=== PATIENT | male | born 1945 | race Caucasian/White ===

== ENCOUNTER → 2018-05-26 | Outpatient (CLI) | payer OTHER ==
[~2018-05-26] MED LIST: ALBU90OI6 INH; ATOR20 PO; Aspirin EC81 MG PO; BRIMONIDINE 0.110 ML; BUDE.25 NEB; CLOP75 PO; EPINEPHRIN0.15 MG/01; FISH OIL 1,0001 EAC1 PO; FLUT1DIS5 INH; FLUT1DIS8 INH; Flovent Diskus50 MCG INH; IRBESARTAN-HCT1 EAC1 PO; LATANOPROST2.5 ML OP; Metformin HCl500 MG PO; Multiple Vitam1 EAC1 PO; POTCHL10ER PO; SITA100T2 PO; Toprol Xl25 MG PO; UBID100 PO
== END | disposition home or self-care (01) ==
LOC: LAB EV 13:12 → LAB SHORT 13:12
DX: N39.0 Urinary tract infection, site not specified (principal)
CPT/HCPCS: 87086

== ENCOUNTER → 2018-08-13 | Outpatient (CLI) | payer OTHER ==
[2018-08-13 17:31] LABS: BASOPHILS ABSOLUTE AUTO 0.02 K/mm3 (0.00-0.23); BASOPHILS PERCENT AUTO 0 % (0-2); EOSINOPHILS ABSOLUTE AUTO 0.34 K/mm3 (0.00-0.68); EOSINOPHILS PERCENT AUTO 6 % (0-6); Hematocrit 43.8 % (37.0-53.0); Hemoglobin 15.1 g/dL (13.5-17.5); IMMATURE GRAN ABSOLUTE AUTO 0.01 K/mm3 (0.00-0.10); IMMATURE GRAN PERCENT AUTO 0 % (0-1); LYMPHOCYTES ABSOLUTE AUTO 1.04 K/mm3 (0.84-5.20); LYMPHOCYTES PERCENT AUTO 19 % (21-46); MONOCYTES ABSOLUTE AUTO 0.37 K/mm3 (0.16-1.47); MONOCYTES PERCENT AUTO 7 % (4-13); Mean Corpuscular HGB 29.4 pg (26.0-34.0); Mean Corpuscular HGB Conc 34.5 g/dL (31.5-36.5); Mean Corpuscular Volume 85 fL (80-100); Mean Platelet Volume 10.3 fL (9.1-12.4); NEUTROPHILS ABSOLUTE AUTO 3.57 K/mm3 (1.96-9.15); NEUTROPHILS PERCENT AUTO 67 % (41-73); Platelet Count 242 K/mm3 (150-400); RDW Coefficient Variation 14.1 % (11.7-14.2); RDW Standard Deviation 43.8 fL (35.1-46.3); Red Blood Cell Count 5.14 M/mm3 (4.30-5.90); White Blood Cell Count 5.35 K/mm3 (4.00-11.30)
[2018-08-13 17:44] LABS: Bun/Creatinine Ratio 17.5 (12.0-20.0); Creatinine, Blood 1.66 mg/dL (0.60-1.20); Potassium, Blood 3.5 mmol/L (3.5-5.5); Troponin I 0.022 ng/mL (0.000-0.040)
== END | disposition home or self-care (01) ==
LOC: LAB SHORT 17:22 → LAB EV 17:22
PROVIDERS: Physician Assistant Surgical
DX: R06.09 Other forms of dyspnea (principal)
CPT/HCPCS: 80048; 83880; 84484; 85025

== ENCOUNTER 2019-05-11 08:12 | Day surgery (SDC) | payer OTHER ==
[~2019-05-11] VITALS: Ht 172.7 cm; Wt 97.8 kg
[~2019-05-11 08:12] MED LIST changes: +COQ-10100 MG PO; +EPIPEN0.3 MG/0.3 IM; +FLUT1DIS5; +Fish Oil 10001000 MG PO; +Flonase 0.05% N16 GM; +LATANOPROST 0.7.5 ML OP; +Lipitor20 MG PO; +METF500 PO; +METO25ER PO; +MULTIPLE VITAM1 EACH PO; +POTA10T PO
--- NOTE | 2019-05-11 09:59 | NUR ---
05/11/19 0959 [facility] PRE OP BLOOD SUGAR 342. DR. CHURCH & DR. COWART NOTIFIED. NO ORDERS RECEIVED. PER BOTH DRS OK TO PROCEED WITH SURGERY.
== END 2019-05-11 14:39 | disposition home or self-care (01) ==
LOC: ORSCSDS 08:12
PROVIDERS: Otolaryngology
PROC: 09DV4ZZ Extraction of Left Ethmoid Sinus, Percutaneous Endoscopic Approach (ICD-10-PCS; principal; 2019-05-11 09:30)
PROC: 09SM0ZZ Reposition Nasal Septum, Open Approach (ICD-10-PCS; principal; 2019-05-11 09:30)
PROC: 09DU4ZZ Extraction of Right Ethmoid Sinus, Percutaneous Endoscopic Approach (ICD-10-PCS; principal; 2019-05-11 09:30)
PROC: 8E09XBZ Computer Assisted Procedure of Head and Neck Region (ICD-10-PCS; principal; 2019-05-11 09:30)
DX: J32.4 Chronic pansinusitis (principal); J33.0 Polyp of nasal cavity; I10 Essential (primary) hypertension; I25.2 Old myocardial infarction; E11.9 Type 2 diabetes mellitus without complications; G47.33 Obstructive sleep apnea (adult) (pediatric); E78.5 Hyperlipidemia, unspecified; Z79.82 Long term (current) use of aspirin; Z79.84 Long term (current) use of oral hypoglycemic drugs; Z79.01 Long term (current) use of anticoagulants; K21.9 Gastro-esophageal reflux disease without esophagitis
CPT/HCPCS: 82947; 88305; 88311; C2625; J1100; J2250; J2370; J2405; J2704; J2710; J3010; J7120

== ENCOUNTER 2021-01-07 06:20 | Observation (INO) | payer OTHER ==
[~2021-01-07] VITALS: Ht 172.7 cm; Wt 94.8 kg
[~2021-01-07 06:20] MED LIST changes: -FLUT1DIS5; -LATANOPROST 0.7.5 ML OP; -Lipitor20 MG PO; -METO25ER PO
[2021-01-07 06:52] LABS: BASOPHILS ABSOLUTE AUTO 0.06 K/mm3 (0.00-0.23); BASOPHILS PERCENT AUTO 1 % (0-2); EOSINOPHILS ABSOLUTE AUTO 0.15 K/mm3 (0.00-0.68); EOSINOPHILS PERCENT AUTO 3 % (0-6); Hematocrit 45.6 % (37.0-53.0); IMMATURE GRAN ABSOLUTE AUTO 0.02 K/mm3 (0.00-0.10); IMMATURE GRAN PERCENT AUTO 0 % (0-1); LYMPHOCYTES ABSOLUTE AUTO 0.42 K/mm3 (0.84-5.20); LYMPHOCYTES PERCENT AUTO 8 % (21-46); MONOCYTES PERCENT AUTO 14 % (4-13); Mean Corpuscular HGB 27.5 pg (26.0-34.0); Mean Corpuscular HGB Conc 32.9 g/dL (31.5-36.5); Mean Corpuscular Volume 84 fL (80-100); Mean Platelet Volume 10.6 fL (9.1-12.4); NEUTROPHILS PERCENT AUTO 74 % (41-73); Platelet Count 153 K/mm3 (150-400); RDW Coefficient Variation 15.1 % (11.7-14.2); RDW Standard Deviation 46.1 fL (35.1-46.3); Red Blood Cell Count 5.45 M/mm3 (4.30-5.90); White Blood Cell Count 5.55 K/mm3 (4.00-11.30)
[2021-01-07 07:14] LABS: Alanine Aminotransfer (ALT/SGP 26 U/L (12-78); Albumin, Blood 3.5 g/dL (3.4-5.0); Albumin/Globulin Ratio 0.9 (0.8-1.8); Alk Phos 98 U/L (50-136); Anion Gap 10 mmol/L (6-16); Aspartate Aminotrans (AST/SGOT 32 U/L (12-37); Bilirubin, Total 0.7 mg/dL (0.1-1.0); Blood Urea Nitrogen 12 mg/dL (8-24); Bun/Creatinine Ratio 8.4 (12.0-20.0); CO2, Blood 20 mmol/L (21-32); Calcium, Blood 8.7 mg/dL (8.5-10.1); Chloride, Blood 108 mmol/L (98-108); Creatinine, Blood 1.43 mg/dL (0.60-1.20); Glomerular Filtration Rate 48 (60-); Glucose, Blood 164 mg/dL (70-99); Potassium, Blood 3.5 mmol/L (3.5-5.5); Sodium, Blood 138 mmol/L (136-145); Total Protein, Blood 7.5 g/dL (6.4-8.2); Troponin I 0.054 ng/mL (0.000-0.040)
[2021-01-07 07:43] LABS: SARS-Cov-2 (COVID-19) PCR, MMC POSITIVE (NEGATIVE)
--- NOTE | 2021-01-07 11:29 | NUR ---
Admit: 01/07/21 Discharge: TBD PCP: Sandy Jackson Dx: Weakness & Fever - Positive COVID-19 CC: [facility] Physician: Ramon Amaro MD. Pt. Contact/Caregiver: Mira Lind, - [phone] [place]: Yes
[2021-01-07] MEDS ORDERED: LATANOPROST 0.7.5 ML BOTHEYES (13:09)
[2021-01-07] MEDS ORDERED: LOSARTAN POTAS100 M1 PO (13:10)
[2021-01-07] MEDS ORDERED: SITA100T2 PO (13:11)
[2021-01-07] MEDS ORDERED: FLUT1DIS5 INH (13:12)
[2021-01-07] MEDS ORDERED: Lipitor20 MG PO (13:13)
[2021-01-07] MEDS ORDERED: METO25ER PO (13:14)
[2021-01-07] MEDS ORDERED: TAMS.4ER PO (13:15)
[2021-01-07] MEDS ORDERED: CLOP75 PO (13:16)
[2021-01-07] MEDS ORDERED: Aspirin EC81 MG PO (13:17)
--- NOTE | 2021-01-07 16:37 | NUR ---
SHIFT SUMMARY. 1350 PT ADMITTED TO MEDICAL FLOOR VIA [facility] FOR WEAKNESS SECONDARY TO COVID-19 INFECTION. VSS, MILDLY HTN, APRESOLINE GIVEN PER ORDERS. PT DENIES PAIN, SOB. PT DOES REPORT SOB, PT BECOMES TACHYPNEIC WITH TALKING AND CHANGES POSITIONS. PT REQUIRED ASSISTANCE TO LOG ROLL IN BED. LUNGS CLEAR, ALTHOUGH DIM T/O, SPO2 GREATER THAN 96% ON RA. NO OTHER CHANGES OR CONCERNS. OT JUST FINISHED EVAL AND IS RECOMMENDING SNF AT THIS TIME DUE TO WEAKNESS, OT REPORTS PT SHOULD BE A 2 PERSON ASSIST TO CHAIR.
--- NOTE | 2021-01-08 03:56 | NUR ---
SHIFT SUMMARY ADMITTED FOR COVID+. FULL CODE. TELEMETRY: NSR @ 75 BPM. NO NEW CONCERNS THIS SHIFT
[2021-01-08 05:58] LABS: C-REACTIVE PROTEIN, EXT RANGE 3.6 mg/dL (0.000-0.300)
--- NOTE | 2021-01-08 07:30 | NUR ---
ASSUMED CARE: PT RESTING QUIETLY IN BED AT THIS TIME. ON RA BUT STATES TIRED AND HAS NO ENERGY
--- NOTE | 2021-01-08 09:30 | NUR ---
PHYSICAL THERAPY PERFORMED EVALUATION AND GOT PT UP TO RECLINER. STATES PT WAS STEADY WITH ONE ASSIST BUT SLOW GOING. DR MUNIZ AWARE
--- NOTE | 2021-01-08 18:35 | NUR ---
SHIFT SUMMARY: PT RESTING IN BED, HAS BEEN WORN OUT ALL DAY WITH VERY LITTLE ENDURANCE OR TOLERANCE FOR ACTIVITY. REMAINS ON ROOM AIR BUT SOB ON EXERTION AND SLOW MOVING. PHYSICAL THERAPY EVALUATION. NO FURTHER NEEDS OR CONCERNS AT THIS TIME.
--- NOTE | 2021-01-09 04:18 | NUR ---
SHIFT SUMMARY NO ACUTE CHANGES THIS SHIFT, NO C/O ANY KIND, RET CALL TO DARLEEN (SPOUSE) AND GAVE UPDATE ON STATUS, QUESTIONING DC PLANS & STATED PT HAS BECOME DIFFICULT FOR HER TO CARE FOR AT HOME. PT SLEPT T/O THE NIGHT, SLEEPING AT THIS TIME, CALL LIGHT IN REACH, WILL CONT TO MONITOR UNTIL REPORT GIVEN TO DAY RN.
[2021-01-09 05:29] LABS: BASOPHILS ABSOLUTE AUTO 0.02 K/mm3 (0.00-0.23); BASOPHILS PERCENT AUTO 1 % (0-2); EOSINOPHILS ABSOLUTE AUTO 0.14 K/mm3 (0.00-0.68); EOSINOPHILS PERCENT AUTO 3 % (0-6); Hematocrit 41.7 % (37.0-53.0); Hemoglobin 13.8 g/dL (13.5-17.5); IMMATURE GRAN ABSOLUTE AUTO 0.01 K/mm3 (0.00-0.10); IMMATURE GRAN PERCENT AUTO 0 % (0-1); LYMPHOCYTES ABSOLUTE AUTO 0.96 K/mm3 (0.84-5.20); LYMPHOCYTES PERCENT AUTO 22 % (21-46); MONOCYTES ABSOLUTE AUTO 0.61 K/mm3 (0.16-1.47); MONOCYTES PERCENT AUTO 14 % (4-13); Mean Corpuscular HGB 27.5 pg (26.0-34.0); Mean Corpuscular HGB Conc 33.1 g/dL (31.5-36.5); Mean Corpuscular Volume 83 fL (80-100); Mean Platelet Volume 10.4 fL (9.1-12.4); NEUTROPHILS ABSOLUTE AUTO 2.67 K/mm3 (1.96-9.15); NEUTROPHILS PERCENT AUTO 61 % (41-73); Platelet Count 124 K/mm3 (150-400); RDW Coefficient Variation 15.2 % (11.7-14.2); RDW Standard Deviation 45.8 fL (35.1-46.3); Red Blood Cell Count 5.02 M/mm3 (4.30-5.90); White Blood Cell Count 4.41 K/mm3 (4.00-11.30)
[2021-01-09 05:55] LABS: Albumin, Blood 2.9 g/dL (3.4-5.0); Albumin/Globulin Ratio 0.8 (0.8-1.8); Bilirubin, Total 0.6 mg/dL (0.1-1.0); Bun/Creatinine Ratio 14.7 (12.0-20.0); Calcium, Blood 7.8 mg/dL (8.5-10.1); Creatinine, Blood 1.29 mg/dL (0.60-1.20); Globulin, Blood 3.6 g/dL (2.2-4.0); Magnesium, Blood 2.3 mg/dL (1.6-2.4); Phosphorus, Blood 3.2 mg/dL (2.5-4.9); Potassium, Blood 3.1 mmol/L (3.5-5.5); Total Protein, Blood 6.5 g/dL (6.4-8.2)
--- NOTE | 2021-01-09 16:36 | NUR ---
SHIFT SUMMARY NO ACUTE CHANGES T/O SHIFT, PT REMAINS ON RA, DENIES ANY DISTRESS OR WORSENING OF SYMPTOMTS. PT/OT NOW RECOMMENDING HOME c HH, MAY DISCHARGE TOMORROW. IS AWARE AND UPDATED OF POSSIBLE DISCHARGE PLANS. GOOD ORAL INTAKE, USING URINAL INDEPENDENTLY. A&Ox3 c CONFUSION AND FORGETFULNESS @ TIMES. PT IS CURRENTLY RESTING IN BED c CALL LIGHT WITHIN REACH.
--- NOTE | 2021-01-10 06:41 | NUR ---
SHIFT SUMMARY: CONTINUES TO BE ON RA, DYSPNIC ON EXERTION BUT RECOVERS WELL WHEN SITTING DOWN. STILL MILDLY WEAK, BUT IS CALLING FOR HELP. VS WNL, AFEBRILE. VERY LITTLE COUGH OR CONGESTION NOTED. LUNG SOUNDS WERE CLEAR T/O. TELE SINUS. SLEPT WELL. HOPES TO GO HOME TODAY. CALL LIGHT IS IN REACH.
[2021-01-10] MEDS ORDERED: C COMPLEX1000 M1 PO (13:35)
[2021-01-10] MEDS ORDERED: VITAMIN D31000 UNI1 PO (13:36)
[2021-01-10] MEDS ORDERED: ZINC220 PO (13:36)
--- NOTE | 2021-01-10 16:03 | NUR ---
Update 01/10/21: Pt. had previously declined SNF, as he wanted to go home. Pt. was appropriate for discharge clinically today. Called to discuss picking patient up and finalizing discharge planning. She stated that she had a COVID test eariler today and she is negative. Does not want to chance exposing herself to COVID, so her plan was to have pt. stay in small house next to theirs on her property. I advised her that he needs assistance and it would be concerning not to have someone with him there. I explained that home health will only be out 2-3 times per week. We discussed wound care technician options. She was not interested in hiring a caregiver at this time. She was tearful and had mentioned wanting to talk to pt. face to face to discuss the SNF. I was able to facilitate a video call with pt. and his family. Discussed possibly discharge plans and all involved agreed that we will try to get the patient sent to the [facility] COVID unit. His paperwork has been sent to the [facility] for COVID Surge review. I did not realize that there had already been discharge orders in the chart. Received call from nurse this afternoon and advised her that I had met with family and the plan currently is to try to get him into a COVID unit. Apoligized for not notifying nursing staff sooner. The [facility] has received multiple requests for patients to go to the COVID unit here in [place] as it is one of three units currently in the [facility]. I am hopeful the patient will be accepted, however; I can not be certain at this point. [facility] has patient on their list as a potential admit if discharge planning requires a change.
--- NOTE | 2021-01-10 16:50 | NUR ---
PT RESTING IN BED MAKING NO COMPLAINTS AT THIS TIME. PT DC WILL TAKE PLACE TOMORROW A SPOT BECOMES AVAIL AT [facility]. NO IV ACCESS ORDER IN AND TELE HAS BEEN DC'D. BED IN LOW POSITION AND CALL LIGHT WITHIN REACH. STAFF WILL CONTINUE TO MONITOR.
[2021-01-11 05:51] LABS: BASOPHILS ABSOLUTE AUTO 0.02 K/mm3 (0.00-0.23); BASOPHILS PERCENT AUTO 1 % (0-2); EOSINOPHILS ABSOLUTE AUTO 0.04 K/mm3 (0.00-0.68); EOSINOPHILS PERCENT AUTO 1 % (0-6); Hematocrit 45.7 % (37.0-53.0); Hemoglobin 15.3 g/dL (13.5-17.5); IMMATURE GRAN ABSOLUTE AUTO 0.01 K/mm3 (0.00-0.10); IMMATURE GRAN PERCENT AUTO 0 % (0-1); LYMPHOCYTES ABSOLUTE AUTO 0.73 K/mm3 (0.84-5.20); LYMPHOCYTES PERCENT AUTO 24 % (21-46); MONOCYTES ABSOLUTE AUTO 0.42 K/mm3 (0.16-1.47); MONOCYTES PERCENT AUTO 14 % (4-13); Mean Corpuscular HGB 27.7 pg (26.0-34.0); Mean Corpuscular HGB Conc 33.5 g/dL (31.5-36.5); Mean Corpuscular Volume 83 fL (80-100); Mean Platelet Volume 11.3 fL (9.1-12.4); NEUTROPHILS ABSOLUTE AUTO 1.85 K/mm3 (1.96-9.15); NEUTROPHILS PERCENT AUTO 60 % (41-73); Platelet Count 107 K/mm3 (150-400); RDW Coefficient Variation 14.8 % (11.7-14.2); Red Blood Cell Count 5.53 M/mm3 (4.30-5.90); White Blood Cell Count 3.07 K/mm3 (4.00-11.30)
--- NOTE | 2021-01-11 06:29 | NUR ---
SHIFT SUMMARY: VERY FATIQUED AND TIRED. CONFUSED MOST OF THE TIME. SLOW TO RESPOND. WAS UNABLE TO GET UP FROM THE CHAIR TONIGHT, TOOK TWO PEOPLE TO LIFT AND TRANSER TO THE BED. DENIED PAIN, JUST WEAKNESS. LOOSE STOOL NOTED. VS WNL. SOB WITH SOME EXERTION. INCONTIENT OF URINE. AWAITING TRANSFER TO SNF. NO OTHER CHANGES TO NOTE. CALL LIGHT IN REACH.
[2021-01-11 06:39] LABS: Albumin, Blood 3.1 g/dL (3.4-5.0); Albumin/Globulin Ratio 0.7 (0.8-1.8); Bilirubin, Total 0.6 mg/dL (0.1-1.0); Bun/Creatinine Ratio 14.9 (12.0-20.0); Calcium, Blood 8.1 mg/dL (8.5-10.1); Creatinine, Blood 1.34 mg/dL (0.60-1.20); Globulin, Blood 4.3 g/dL (2.2-4.0); Potassium, Blood 3.5 mmol/L (3.5-5.5); Total Protein, Blood 7.4 g/dL (6.4-8.2)
--- NOTE | 2021-01-11 08:42 | NUR ---
Update 01/11/21: Spoke with patient's this am. Provided update regarding patient's condition and discharge planning. She dropped off belongings for pt. and wants to ensure that he received those. Advised her that I will go see him and ensure that the has his cell phone and other belongings. Patient's concerned with his changed in behavior, lethargy, and lack of communication with her. I advised her that it isn't common for patients to feel very tired while their body is fighting the COVID virus. I re-assured her that I would discuss his care with the [facility] today and relay her concerns.
--- NOTE | 2021-01-11 16:25 | NUR ---
SHIFT SUMMARY PT AAOX3, FORGETUL AT TIMES. PLEASANT AND COOPERATIVE TO CARE. CALLS APPROPRIATELY FOR ASSISTANCE. NO C/O PAIN OR ANY DISCOMFORT THIS SHIFT. NO C/O CP, SOB, OR N&V. PT NOTED TO HAVE AN OCCASSIONAL DRY COUGH. RESPS E/U IN RA. BED AT LOWEST POSITION. CALL LIGHT WITHIN REACH.
[2021-01-12 05:09] LABS: BASOPHILS ABSOLUTE AUTO 0.01 K/mm3 (0.00-0.23); BASOPHILS PERCENT AUTO 0 % (0-2); EOSINOPHILS PERCENT AUTO 0 % (0-6); Hematocrit 44.3 % (37.0-53.0); IMMATURE GRAN ABSOLUTE AUTO 0.01 K/mm3 (0.00-0.10); IMMATURE GRAN PERCENT AUTO 0 % (0-1); LYMPHOCYTES ABSOLUTE AUTO 0.43 K/mm3 (0.84-5.20); LYMPHOCYTES PERCENT AUTO 13 % (21-46); MONOCYTES ABSOLUTE AUTO 0.13 K/mm3 (0.16-1.47); MONOCYTES PERCENT AUTO 4 % (4-13); Mean Corpuscular HGB 27.9 pg (26.0-34.0); Mean Corpuscular HGB Conc 33.9 g/dL (31.5-36.5); Mean Corpuscular Volume 82 fL (80-100); Mean Platelet Volume 11.1 fL (9.1-12.4); NEUTROPHILS ABSOLUTE AUTO 2.81 K/mm3 (1.96-9.15); NEUTROPHILS PERCENT AUTO 83 % (41-73); Platelet Count 103 K/mm3 (150-400); RDW Standard Deviation 45.5 fL (35.1-46.3); Red Blood Cell Count 5.38 M/mm3 (4.30-5.90); White Blood Cell Count 3.39 K/mm3 (4.00-11.30)
[2021-01-12 05:31] LABS: Alanine Aminotransfer (ALT/SGP 45 U/L (12-78); Albumin, Blood 2.8 g/dL (3.4-5.0); Albumin/Globulin Ratio 0.7 (0.8-1.8); Alk Phos 74 U/L (50-136); Anion Gap 9 mmol/L (6-16); Aspartate Aminotrans (AST/SGOT 64 U/L (12-37); Bilirubin, Total 0.5 mg/dL (0.1-1.0); Blood Urea Nitrogen 20 mg/dL (8-24); Bun/Creatinine Ratio 17.9 (12.0-20.0); CO2, Blood 19 mmol/L (21-32); Calcium, Blood 7.8 mg/dL (8.5-10.1); Chloride, Blood 108 mmol/L (98-108); Creatinine, Blood 1.12 mg/dL (0.60-1.20); Globulin, Blood 4.2 g/dL (2.2-4.0); Glomerular Filtration Rate >60 (60-); Glucose, Blood 170 mg/dL (70-99); Potassium, Blood 3.9 mmol/L (3.5-5.5); Sodium, Blood 136 mmol/L (136-145)
--- NOTE | 2021-01-12 08:14 | NUR ---
SHIFT SUMMARY: INCREASE IN CONFUSION, TENDS TO HAVE FLAT AFFECT WHEN TALKING TO HIM. FEBRILE AT 101. ORAL 100. VERY WEAK AND APPEARS TO HAVE A COGNITIVE DELAY. MD CALLED DUE TO FEVER INFORMED OF CONCERNS. D-DIMER ORDERED WHICH CAME BACK ELEVATED THIS AM. HE HAS BEEN HAVING INCREASE IN RESPIRATION MOSTLY WHEN HE HAD A FEVER. DENIED PAIN OR DISCOMFORT. LUNG SOUNDS ARE DIMINISHED. BED ALARM ON. CALL LIGHT IN REACH.
--- NOTE | 2021-01-12 16:24 | NUR ---
SHIFT SUMMARY PT AAOX3, IRRITABLE AT TIMES, SOME CONFUSION NOTED. REDIRECTABLE. NO C/0 PAIN OR ANY DISCOMFORT THIS SHIFT. NO C/0 CP OR N/V. SOB W/ EXERTION NOTED. RESPS E/U IN RA. PT REQUIRES 1P ASSIST WITH FWW AND GB TO BSC. NO ACUTE CHANGES NOTED TO PT THIS SHIFT. BED AT LOWEST POSITION W/ ALARM ON FOR SAFETY. CALL LIGHT WITHIN REACH.
--- NOTE | 2021-01-13 05:21 | NUR ---
SHIFT SUMMARY AOX3, ANSWERED ORIENTATION QUESTIONS CORRECTLY. SLOW TO RESPOND. FORGETFUL @TIMES. SPO2 >90% ON RA. LUNGS DIM T/O. HAS DRY NON PRODUCTIVE COUGH. INCONT/CONT OF URINE. REST OF VSS. DENIES PAIN, N/V, OR SOB. CALL LIGHT & BED ALARM IN PLACE FOR SAFETY. WCTM.
[2021-01-13 06:16] LABS: BASOPHILS ABSOLUTE AUTO 0.01 K/mm3 (0.00-0.23); BASOPHILS PERCENT AUTO 0 % (0-2); EOSINOPHILS PERCENT AUTO 0 % (0-6); Hematocrit 44.5 % (37.0-53.0); Hemoglobin 14.8 g/dL (13.5-17.5); IMMATURE GRAN ABSOLUTE AUTO 0.04 K/mm3 (0.00-0.10); IMMATURE GRAN PERCENT AUTO 1 % (0-1); LYMPHOCYTES ABSOLUTE AUTO 0.66 K/mm3 (0.84-5.20); LYMPHOCYTES PERCENT AUTO 8 % (21-46); MONOCYTES ABSOLUTE AUTO 0.31 K/mm3 (0.16-1.47); MONOCYTES PERCENT AUTO 4 % (4-13); Mean Corpuscular HGB 27.4 pg (26.0-34.0); Mean Corpuscular HGB Conc 33.3 g/dL (31.5-36.5); Mean Corpuscular Volume 82 fL (80-100); Mean Platelet Volume 11.2 fL (9.1-12.4); NEUTROPHILS ABSOLUTE AUTO 7.58 K/mm3 (1.96-9.15); NEUTROPHILS PERCENT AUTO 88 % (41-73); Platelet Count 126 K/mm3 (150-400); RDW Coefficient Variation 14.9 % (11.7-14.2); RDW Standard Deviation 45.1 fL (35.1-46.3); Red Blood Cell Count 5.41 M/mm3 (4.30-5.90)
[2021-01-13 07:01] LABS: Alanine Aminotransfer (ALT/SGP 40 U/L (12-78); Albumin, Blood 2.7 g/dL (3.4-5.0); Albumin/Globulin Ratio 0.7 (0.8-1.8); Alk Phos 70 U/L (50-136); Anion Gap 10 mmol/L (6-16); Aspartate Aminotrans (AST/SGOT 48 U/L (12-37); Bilirubin, Total 0.5 mg/dL (0.1-1.0); Blood Urea Nitrogen 28 mg/dL (8-24); Bun/Creatinine Ratio 23.9 (12.0-20.0); CO2, Blood 20 mmol/L (21-32); Calcium, Blood 8.5 mg/dL (8.5-10.1); Chloride, Blood 105 mmol/L (98-108); Creatinine, Blood 1.17 mg/dL (0.60-1.20); Globulin, Blood 4.1 g/dL (2.2-4.0); Glomerular Filtration Rate >60 (60-); Glucose, Blood 201 mg/dL (70-99); Potassium, Blood 3.8 mmol/L (3.5-5.5); Sodium, Blood 135 mmol/L (136-145); Total Protein, Blood 6.8 g/dL (6.4-8.2)
--- NOTE | 2021-01-13 11:40 | NUR ---
THIS CHIEF TECHNOLOGY OFFICER TOOK OVER NURSING CARE THIS AM NURSE CARING FOR PT WAS SENT HOME. NO DISTRESS NOTED AT THIS TIME WILL CONTINUE TO MONITOR.
--- NOTE | 2021-01-13 17:28 | NUR ---
NO ACUTE CHANGES. PT AOX4 AND COOPERATIVE OF CARE. PT MAINTAINING O2 AT THIS TIME. PT IN BED AND CAN CALL APPROPRIATELY. NO DISTRESS NOTED AT THIS TIME WILL CONTINUE TO MONITOR.
--- NOTE | 2021-01-14 06:18 | NUR ---
SHIFT SUMMARY AOX4. VSS. SPO2 >90% ON RA. LS DIM T/O. DENIES SOB, N/V OR PAIN. IRRITABLE. STATES HE IS FRUSTRATED BECAUSE HE DOESNT WANT TO GO TO SNF, CALL LIGHT IN REACH &PT ABLE TO MAKE NEEDS KNOWN.
--- NOTE | 2021-01-14 14:32 | NUR ---
Update 01/14/21: Pt. appropriate for discharge and accepted to SNF. There was some concern that he might decline SNF, but when I spoke with him again today he is agreeable. Transportation is scheduled for 3:30 PM today. has been notified. requesting that nurse call her when transport is heading out of [facility] so she can see pt. on his way out. Discussed discharge plan with pt. he is agreeable and excited to see his before he leaves. No further needs at this time. [facility] team will be contacting the facility to schedule a hospital F/U visit within 24-48 hours.
--- NOTE | 2021-01-14 15:40 | NUR ---
PATIENT D/C'D TO [facility] VIA W/C TRANSPORT. BELONGINGS SENT WITH IMCU SPECIALIST. REPORTS CALLED TO TATA MERIDA AT [facility].
== END 2021-01-14 15:44 ==
LOC: ER 06:20 → ERHOLD 06:21 → MEDS 06:21 → ERHOLD 14:00 → MEDS 14:00 → ENPENDDIS 01-10 16:22 → MEDS 01-14 15:44
PROVIDERS: Emergency Medicine; Family Medicine; ADMIT Hospitalist
DX: U07.1 COVID-19 (principal); I25.10 Atherosclerotic heart disease of native coronary artery without angina pectoris; I12.9 Hypertensive chronic kidney disease with stage 1 through stage 4 chronic kidney disease, or unspecified chronic kidney disease; E11.22 Type 2 diabetes mellitus with diabetic chronic kidney disease; N18.9 Chronic kidney disease, unspecified; N17.9 Acute kidney failure, unspecified; C61 Malignant neoplasm of prostate; J44.9 Chronic obstructive pulmonary disease, unspecified; G93.89 Other specified disorders of brain; G91.4 Hydrocephalus in diseases classified elsewhere; M48.061 Spinal stenosis, lumbar region without neurogenic claudication; E11.42 Type 2 diabetes mellitus with diabetic polyneuropathy; E78.5 Hyperlipidemia, unspecified; R79.89 Other specified abnormal findings of blood chemistry; Z87.891 Personal history of nicotine dependence; Z88.8 Allergy status to other drugs, medicaments and biological substances; Z88.6 Allergy status to analgesic agent; Z91.040 Latex allergy status; Z79.84 Long term (current) use of oral hypoglycemic drugs; Z95.1 Presence of aortocoronary bypass graft
CPT/HCPCS: 36415; 71045; 71260; 80053; 82728; 82947; 83615; 83735; 83880; 84100; 84484; 85025; 85379; 86140; 93005; 93010; 94640; 94664; 94760; 96372; 96374; 96375; 96376; 97110; 97116; 97161; 97166; 97530; 99285-25; A9270; G0378; J1650; J1815; J2920; J7040; J7512; Q9967; U0004

== ENCOUNTER 2021-05-02 12:26 | Day surgery (SDC) | payer OTHER ==
[~2021-05-02] VITALS: Ht 172.7 cm; Wt 87.5 kg
[~2021-05-02 12:26] MED LIST changes: +C COMPLEX1000 M1 PO; +LATANOPROST 0.7.5 ML BOTHEYES; +LOSARTAN POTAS100 M1 PO; +Lipitor20 MG PO; +METO25ER PO; +TAMS.4ER PO; +VITAMIN D31000 UNI1 PO; +ZINC220 PO
[2021-05-02] MEDS ORDERED: TRADJENTA5 MG PO (13:16)
--- NOTE | 2021-05-02 13:45 | NUR ---
DISCUSSED MONITOR STIP W/ . NO EKG NEEDED. PT DENIES CHEST PAIN. PT HAS MILD CONFUSION WHEN DISCUSSING MEDICATION. STOPPED TAKING ALL MEDS 5 DAYS AGO WHEN TOLD TO STOP TAKING PLAVIX. PT AT BEDSIDE, DISCUSSED WAYS THAT CAN HELP TO ASSIST PT.
--- NOTE | 2021-05-02 13:50 | NUR ---
05/02/21 1350 MinaJana Karl History, Chart, Medications and Allergies reviewed before start of procedure. Patient confirms NPO status and agrees with scheduled surgery. 3-LEAD EKG REVIEWED WITH PHYSICIAN PRIOR TO START OF PROCEDURE. MONITOR INTACT WITH CONTINUOUS PULSE OXIMETRY AND INTERMITTENT BP. PATIENT DETERMINED TO BE ASA APPROPRIATE FOR PROPOFOL SEDATION PRIOR TO START OF PROCEDURE BY
== END 2021-05-02 15:05 | disposition home or self-care (01) ==
LOC: ORSCMMR 12:26 → ORD 13:30 → ORSCMMR 15:05
PROVIDERS: Surgery
PROC: 0DJD8ZZ Inspection of Lower Intestinal Tract, Via Natural or Artificial Opening Endoscopic (ICD-10-PCS; principal; 2021-05-02 13:30)
PROC: 0DBH8ZX Excision of Cecum, Via Natural or Artificial Opening Endoscopic, Diagnostic (ICD-10-PCS; principal; 2021-05-02 13:30)
DX: Z12.11 Encounter for screening for malignant neoplasm of colon (principal); D12.0 Benign neoplasm of cecum; I10 Essential (primary) hypertension; E11.9 Type 2 diabetes mellitus without complications; J44.9 Chronic obstructive pulmonary disease, unspecified; I25.10 Atherosclerotic heart disease of native coronary artery without angina pectoris; I25.2 Old myocardial infarction; E66.9 Obesity, unspecified; Z68.30 Body mass index [BMI] 30.0-30.9, adult; Z87.891 Personal history of nicotine dependence; Z79.82 Long term (current) use of aspirin; Z79.84 Long term (current) use of oral hypoglycemic drugs; Z79.899 Other long term (current) drug therapy
CPT/HCPCS: 82947; 88305; J2704; J7120

== ENCOUNTER 2024-07-22 17:18 | Emergency (ER) | payer OTHER ==
[~2024-07-22] VITALS: Ht 172.7 cm; Wt 68.0 kg
[~2024-07-22 17:18] MED LIST changes: +TRADJENTA5 MG PO
[2024-07-22] MEDS ORDERED: FURO40 PO (17:40)
[2024-07-22] MEDS ORDERED: JARDIANCE10 MG PO (17:42)
[2024-07-22] MEDS ORDERED: POTA8 PO (17:42)
[2024-07-22] MEDS ORDERED: SPIR25 PO (17:42)
[2024-07-22] MEDS ORDERED: Prinivil10 MG PO (17:43)
[2024-07-22 18:05] LABS: BASOPHILS ABSOLUTE AUTO 0.09 K/mm3 (0.00-0.23); BASOPHILS PERCENT AUTO 1 % (0-2); EOSINOPHILS ABSOLUTE AUTO 0.56 K/mm3 (0.00-0.68); EOSINOPHILS PERCENT AUTO 6 % (0-6); Hematocrit 52.3 % (37.0-53.0); Hemoglobin 17.3 g/dL (13.5-17.5); IMMATURE GRAN ABSOLUTE AUTO 0.03 K/mm3 (0.00-0.10); IMMATURE GRAN PERCENT AUTO 0 % (0-1); LYMPHOCYTES ABSOLUTE AUTO 0.82 K/mm3 (0.84-5.20); LYMPHOCYTES PERCENT AUTO 9 % (21-46); MONOCYTES ABSOLUTE AUTO 0.74 K/mm3 (0.16-1.47); MONOCYTES PERCENT AUTO 8 % (4-13); Mean Corpuscular HGB 28.7 pg (26.0-34.0); Mean Corpuscular HGB Conc 33.1 g/dL (31.5-36.5); Mean Corpuscular Volume 87 fL (80-100); Mean Platelet Volume 10.2 fL (9.1-12.4); NEUTROPHILS ABSOLUTE AUTO 6.64 K/mm3 (1.96-9.15); NEUTROPHILS PERCENT AUTO 75 % (41-73); Platelet Count 207 K/mm3 (150-400); RDW Coefficient Variation 16.3 % (11.7-14.2); RDW Standard Deviation 51.3 fL (35.1-46.3); Red Blood Cell Count 6.02 M/mm3 (4.30-5.90); White Blood Cell Count 8.88 K/mm3 (4.00-11.30)
[2024-07-22 18:27] LABS: Albumin, Blood 3.2 g/dL (3.4-5.0); Albumin/Globulin Ratio 0.8 (0.8-1.8); Bilirubin, Total 0.6 mg/dL (0.1-1.0); Bun/Creatinine Ratio 24.7 (12.0-20.0); Calcium, Blood 9.5 mg/dL (8.5-10.1); Creatinine, Blood 1.5 mg/dL (0.60-1.20); Globulin, Blood 3.8 g/dL (2.2-4.0); Magnesium, Blood 2.3 mg/dL (1.6-2.4); Potassium, Blood 3.8 mmol/L (3.5-5.5)
[2024-07-22] MEDS ORDERED: Ipratropium Bromide INH 0.02% 0.5 mg/2.5ML Vial INH SCH (18:40)
[2024-07-22] MEDS ORDERED: Albuterol 2.5 MG/3 ML VIAL INH SCH (18:40)
[2024-07-22 19:37] LABS: Source, Urine Clean Catch
[2024-07-22 19:43] LABS: Bilirubin, Urine Neg (Neg); Blood, Urine 2+ (Neg); Color, Urine Yellow (P-Yellow); Glucose Qualitative, Urine 3+ (Neg); Ketones, Urine Neg (Neg); Leukocyte Esterase, Urine 2+ (Neg); Nitrite, Urine Neg (Neg); Protein, Urine 2+ (Neg); Specific Gravity, Urine 1.015 (1.003-1.022); Urobilinogen, Urine NORM (Normal)
[2024-07-22 19:50] LABS: Appearance, Urine Hazy (Clear)
[2024-07-22 19:52] LABS: Mucus Light (0-Heavy); Red Blood Cells, Urine 0-2 /hpf (0-2); Spermatozoa Mod /hpf; Squamous Epithelial Cells Rare /hpf (Few)
[2024-07-22 19:53] LABS: Bacteria Few /hpf
[2024-07-22 20:00] VITALS: BP 98/62
== END 2024-07-22 21:22 | disposition home or self-care (01) ==
LOC: ER 17:18
PROVIDERS: Emergency Medicine; Student in an Organized Health Care Education/Training Program
DX: R42 Dizziness and giddiness (principal); L53.9 Erythematous condition, unspecified; I10 Essential (primary) hypertension; E78.5 Hyperlipidemia, unspecified; Z79.82 Long term (current) use of aspirin; Z79.899 Other long term (current) drug therapy; Z91.040 Latex allergy status; Z88.6 Allergy status to analgesic agent; Z88.8 Allergy status to other drugs, medicaments and biological substances
CPT/HCPCS: 71046; 80053; 81001; 83735; 83880; 84484; 85025; 87086; 93005; 93010; 94644; 94664; 99284-25

== ENCOUNTER 2024-09-01 16:38 | Inpatient (IN) | payer OTHER ==
[~2024-09-01] VITALS: Ht 172.7 cm; Wt 73.0 kg
[~2024-09-01 16:38] MED LIST changes: +FURO40 PO; +JARDIANCE10 MG PO; +POTA8 PO; +Prinivil10 MG PO; +SPIR25 PO
[2024-09-01 17:18] LABS: BASOPHILS ABSOLUTE AUTO 0.12 K/mm3 (0.00-0.23); BASOPHILS PERCENT AUTO 1 % (0-2); EOSINOPHILS ABSOLUTE AUTO 0.42 K/mm3 (0.00-0.68); EOSINOPHILS PERCENT AUTO 4 % (0-6); Hematocrit 51.3 % (37.0-53.0); Hemoglobin 17.1 g/dL (13.5-17.5); IMMATURE GRAN ABSOLUTE AUTO 0.03 K/mm3 (0.00-0.10); IMMATURE GRAN PERCENT AUTO 0 % (0-1); LYMPHOCYTES ABSOLUTE AUTO 0.83 K/mm3 (0.84-5.20); LYMPHOCYTES PERCENT AUTO 8 % (21-46); MONOCYTES ABSOLUTE AUTO 0.75 K/mm3 (0.16-1.47); MONOCYTES PERCENT AUTO 7 % (4-13); Mean Corpuscular HGB 28.8 pg (26.0-34.0); Mean Corpuscular HGB Conc 33.3 g/dL (31.5-36.5); Mean Corpuscular Volume 86 fL (80-100); Mean Platelet Volume 9.1 fL (9.1-12.4); NEUTROPHILS ABSOLUTE AUTO 8.34 K/mm3 (1.96-9.15); NEUTROPHILS PERCENT AUTO 80 % (41-73); Platelet Count 275 K/mm3 (150-400); RDW Coefficient Variation 15.7 % (11.7-14.2); RDW Standard Deviation 49.2 fL (35.1-46.3); Red Blood Cell Count 5.94 M/mm3 (4.30-5.90); White Blood Cell Count 10.49 K/mm3 (4.00-11.30)
[2024-09-01 17:38] LABS: Albumin, Blood 3.4 g/dL (3.4-5.0); Albumin/Globulin Ratio 0.8 (0.8-1.8); Bilirubin, Total 0.6 mg/dL (0.1-1.0); Bun/Creatinine Ratio 33.1 (12.0-20.0); Creatinine, Blood 1.24 mg/dL (0.60-1.20); Globulin, Blood 4.4 g/dL (2.2-4.0); Potassium, Blood 4.3 mmol/L (3.5-5.5); Total Protein, Blood 7.8 g/dL (6.4-8.2)
[2024-09-01] MEDS ORDERED: Ondansetron HCl 2 MG / ML 2ML Vial IV PRN (20:15)
[2024-09-01 20:26] LABS: Anti-Xa UFH, PHA Monitoring <0.10 IU/mL; International Normalized Ratio 1.19; Prothrombin Time Results 12.6 Sec (9.7-11.5)
[2024-09-01] MEDS ORDERED: Vancomycin HCL 1,750 MG in NS 500 ML IV ONE (20:30)
[2024-09-01] MEDS ORDERED: Heparin Sodium,Porcine/0.5 NS 500 ML IV SCH (20:45)
[2024-09-01] MEDS ORDERED: Heparin Sodium 5000 Units/ML 1ML MDV IV ONE (20:45)
[2024-09-01] MEDS ORDERED: CefTRIAXone Sodium 1,000 MG in NS 100 ML IV SCH (21:00)
[2024-09-01] MEDS ORDERED: Lactobacil 2-S.Thermo-Bifido 1 1 Cap PO SCH (21:00)
[2024-09-01] MEDS ORDERED: Docusate Sodium 100 MG Cap PO SCH (21:00)
[2024-09-01] MEDS ORDERED: Famotidine 20 MG Tab PO SCH ×2 (21:00)
[2024-09-01] MEDS ORDERED: Ipratropium/Albuterol SulF 2.5-0.5MG/3 ML Amp INH SCH (22:00)
[2024-09-01 22:38] VITALS: BP 149/48
--- NOTE | 2024-09-01 23:25 | NUR ---
ASSUMPTION OF CARE REPORT RECIEVED FROM MARTA LYLE RN. PT ARRIVED TO PCU VIA [facility]. PT SLID FROM [facility] TO PCU BED. PT A&O X4, CALM, COOPERATIVE TO CARE. HR IN THE 80'S, SINUS RHYTHM, HE DENIES CP/PRESSURE, SBP STABLE. O2 >90% ON RA, HE REPORTS HE USES O2 AT HOME NEEDED, 3L VIA NC, DENIES SOB AT THIS TIME. PT HAS BLACK/PURPLE DISCOLARTION TO LEFT 2ND AND THIRD TOES. PT WITH ABRASIONS/SKIN BREAKDOWN OF THE LEFT BIG TOE AND DOWN THE FOOT. HE REPORTS NUMBNESS OF THE LEFT FOOT. PT RESTING IN BED AT THIS TIME. PT BE NPO AT MIDNIGHT. CALL LIGHT IN REACH. WILL MONITOR PT.
[2024-09-02] VITALS (12 sets, daily range): BP systolic 99–179; BP diastolic 46–98
[2024-09-02] MEDS ORDERED: TRELEGY ELLIPT1 EACH INH (02:57)
[2024-09-02 04:16] LABS: Hematocrit 48.7 % (37.0-53.0); Hemoglobin 15.8 g/dL (13.5-17.5); Mean Corpuscular HGB 29.2 pg (26.0-34.0); Mean Corpuscular HGB Conc 32.4 g/dL (31.5-36.5); Mean Corpuscular Volume 90 fL (80-100); Mean Platelet Volume 9.5 fL (9.1-12.4); Platelet Count 236 K/mm3 (150-400); RDW Coefficient Variation 15.9 % (11.7-14.2); RDW Standard Deviation 52.2 fL (35.1-46.3); Red Blood Cell Count 5.42 M/mm3 (4.30-5.90); White Blood Cell Count 9.44 K/mm3 (4.00-11.30)
[2024-09-02 04:45] LABS: Bun/Creatinine Ratio 32.5 (12.0-20.0); Calcium, Blood 8.7 mg/dL (8.5-10.1); Creatinine, Blood 1.17 mg/dL (0.60-1.20); Potassium, Blood 3.9 mmol/L (3.5-5.5)
[2024-09-02] MEDS ORDERED: Dose Adjust by Pharmacy XX STA (04:45)
--- NOTE | 2024-09-02 05:41 | NUR ---
SHIFT SUMMARY PT A&O X4, CALM, COOPERATIVE TO CARE. HR IN THE 70'S, SR. HE DENIES CP/PRESSURE. SBP STABLE. 02 >92% ON RA, HE DENIES ANY SOB. PT REPORTS HE USES 3L AT HOME NEEDED. PT WITH LEFT 2ND AND THIRD TOE BLACK/PURPLE DISCOLORATION FOR 1 WEEK, PICTURES IN CHART. PT REPORTS NUMB/TINGLING IN FOOT. PODIATRY CONSULT CALLED IN THIS AM. PT NPO SINCE 0000. NO ACUTE CHANGS T/O SHIFT. WILL REPORT TO ONCOMING RN.
--- NOTE | 2024-09-02 07:26 | NUR ---
Receieved report from Noc RN. Patient easily awakens to verbal stimuli. He is able to communicate his needs and denies any current needs. He is getting a breathing treatment and sats 96% RA. R foot 2nd & 3rd toe are mostly black and are being evaluated by IR and podiatry. HR 75 with frequent PAC & PVC. He has 20ga IV to RFA and LAC. LAC SL and RFA is infusing Heparin at 15 U/KG/Hr per pharmacy. Patient hasd been NPO per orders.
[2024-09-02] MEDS ORDERED: Insulin Human Lispro 100 Units/ML 3ML Syringe SC SCH (07:30)
[2024-09-02 08:02] LABS: Bun/Creatinine Ratio 31.1 (12.0-20.0); Calcium, Blood 8.8 mg/dL (8.5-10.1); Creatinine, Blood 1.19 mg/dL (0.60-1.20); Potassium, Blood 3.7 mmol/L (3.5-5.5)
[2024-09-02] MEDS ORDERED: Lisinopril 10 MG Tab PO SCH (09:00)
[2024-09-02] MEDS ORDERED: Atorvastatin 10 MG Tab PO SCH (09:00)
[2024-09-02] MEDS ORDERED: Metoprolol Succinate 25 MG TABCR PO SCH (09:00)
[2024-09-02] MEDS ORDERED: Aspirin 81 MG TabEC PO SCH (09:00)
[2024-09-02] MEDS ORDERED: Empagliflozin 10 MG TAB PO SCH (09:00)
--- NOTE | 2024-09-02 10:00 | NUR ---
Patient up to bathroom. Tolerated am meds with sips of water. Ambulated with FFW. at bedside at will bring in updated med list. Patient deniesd and need for pain intervention. He os on RA and sats >90%. He states slight painaround top of left foot. No changes to Heparin Gtt.
[2024-09-02] MEDS ORDERED: NS 1,000 ML IV ONE ×2 (10:58→11:08)
[2024-09-02] MEDS ORDERED: NS 100 ML IV ONE (10:58)
[2024-09-02] MEDS ORDERED: Heparin Sodium 1000 Units/ML 10ML MDV ONE ×2 (10:58→12:30)
[2024-09-02] MEDS ORDERED: NS 250 ML IV ONE (10:58)
[2024-09-02] MEDS ORDERED: Midazolam HCl 1MG / ML 2ML Vial ONE (11:08)
[2024-09-02] MEDS ORDERED: FentaNYL Citrate 50 MCG/ML 2 ML Injection ONE (11:08)
--- NOTE | 2024-09-02 11:30 | NUR ---
Dr. German by and spoke with patient and and got consent for IR procedure. They are coming to get patient shortly and taking to IR lab. Patient and stated no further questions for
[2024-09-02] MEDS ORDERED: NS 500 ML IV ONE (12:30)
[2024-09-02] MEDS ORDERED: Clopidogrel Bisulfate 300 MG TABLET ONE (13:16)
[2024-09-02] MEDS ORDERED: Aspirin 81 MG Chew ONE (13:17)
--- NOTE | 2024-09-02 13:44 | NUR ---
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 Right groin site C/D/I and has no swelling, oozing or bleeding. Left foot pink and cool with #1 doppler pedal pulse. Transition Nurse started on Plavix 75mg, Lab drawn by US. Called to let her know he was back.
--- NOTE | 2024-09-02 15:44 | NUR ---
Patient called and wanted up to bathroom, assissted with walker and tolerated well. Educated about not straining r/t groin site. He ambulated back to bed and hooked back to monitor. Groin site C/D/I and soft palpable. Foot still pick and faint doppler pulses. He remains on RA and stats >90%. Tolerating liquids well.
--- NOTE | 2024-09-02 17:30 | NUR ---
Dr Butler has been by and stated NPO after midnight for surgery on left foot. came out and stated he is on 3L O2 at home in the evening as he feel more comfortable before sleep. Notified and placed on NC at 3L and patient stated felt better.
--- NOTE | 2024-09-02 18:21 | NUR ---
PALLIATIVE CARE VISIT: PRIOR TO VISIT RECEIVED CALL FROM FILIBERTO LYMAN FROM [place] [facility]. SHE REPORTED HAD CALLED HER WITH [facility] AND SHE REQUESTED I FOLLOW UP WITH THEM. SENT ADVANCE DIRECTIVE ON FILE FROM [place] AND STATED POLST IS ON FILE THROUGH [facility]. CALLED MANDI AND PT IS NO LONGER A ACTIVE PT WITH [facility] BUT THEY STILL HAD THE POLST ON FILE AND SO THEY SENT A COPY VIA FAX. MET WITH PT AND IN ROOM. PT IS AWAKE, A/O X 4 ABLE TO HAVE MEANINGFUL DISCUSSION. DISCUSSED GOALS OF CARE, POLST AND AD. PT WISHES TO REMAIN DNR WITH SELECTIVE TREATMENT PER POLST ON FILE. ADVISED WOULD CHANGE CODE STATUS AFTER HIS PROCEDURE WAS COMPLETED. PT STATES HIS GOALS ARE TO GET HIS FOOT TAKEN CARE OF. DISCUSSED POTENTIAL POSSIBILTY HE MAY NEED TOES AMPUTATED AND PT STATES HE WILL WANT AMPUTATION OF TOES IF NEEDED. PT IS AGREEABLE TO SNF IF OR HOME HEALTH SERVICES IF NEEDED. DISCUSSED IMPORTANCE OF GOOD DIABETIC FOOT CARE AND WHAT THAT ENTAILS. PT V/U. SPOKE TO DARLEEN ALONE. DARLEEN REPORTS SHE IS OVERWHELMED RIGHT NOW BECAUSE SHE WILL BE STARTING TREATMENT HERSELF FOR BREAST CANCER. DARLEEN STATES THEY HAVE NO FAMILY NEARBY TO ASSIST IN HER HUSBANDS CARE. SHE REPORTS PT DOES NOT DO HIS WOUND CARE LIKE HE IS SUPPOSED TO AND WILL LEAVE DIRTY BANDAGES IN PLACE TOO LONG. PT IS RESISTANT TO HER HELP. 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 DARLEEN DOES NOT THINK HER HAS DEMENTIA AND HE HAS NEVER BEEN DIAGNOSED WITH DEMENTIA BUT SHE HAS HAD TO TAKE OVER PAYING BILLS BECAUSE HE WAS FORGETTING TO PAY ELECTRIC BILL. DARLEEN STATES ALL PT DOES IS EAT, WATCH TV AND FEED THERE TWO DOGS. HE HAS LOST 35 LBS OVER THE LAST YEAR DUE TO DECREASED APPETITE. PT TAKES 2 HOURS TO BATHE BECAUSE HE GETS SO SOB WITH ANY ACTIVITY. IT IS VERY DIFFICULT TO GET HIM TO ALL OF HIS APPOINTMENTS. SHE REPORTS HER HOUSE IS PAYED FOR AND PROPERTY CARE IS MANAGABLE. PT HAS REFUSED TO SALE HOME TO MOVE TO A ASSISTED LIVING CENTER. DISCUSSED THE BENEFITS OF HOME HEALTH SERVICES AND HOSPICE SERVICES. ENCOURAGED TO REACH OUT TO [place] SHE INDICATES HE IS 100% SERVICE CONNECTED AND SEE IF HE WOULD QUALIFY FOR CAREGIVER ASSISTANCE. STATES SHE IS WORKING WITH FILIBERTO AND STATES SHE IS WORRIED HER WILL BE RESISTANT TO CAREGIVERS. ADVISED HER TO BE DIRECT WITH PT AND LET HIM KNOW SHE NEEDS ASSISTANCE SO SHE CAN FOCUS ON HER CARE NEEDS AT THIS TIME. V/U.
[2024-09-02] MEDS ORDERED: Albuterol 2.5 MG/3 ML VIAL INH PRN (18:50)
--- NOTE | 2024-09-02 19:01 | NUR ---
Aide came out stating patient feels SOB and when entering room he was working hard and did not feel getting enough O2 and sats 88-90%. Placed on venti mask at 5L and nettie increased to >90%. Called Dr Ramírez and placed order for stat chest exray and breathing treatments. CN placing PowerGlide.
[2024-09-02] MEDS ORDERED: Ipratropium/Albuterol SulF 2.5-0.5MG/3 ML Amp INH SCH (19:58)
--- NOTE | 2024-09-02 20:16 | NUR ---
Assessed ptrt start of shift - noted new ectopy on tele EKG completed at bed side,donald noted same as previous EKG, Pt SOB with excessory muscle breating tight course heard bilat - breathing x completed hellped significanly, pt calmer HR stabilized, MD contacted for labs and poential new med orders, x ry back nremarkable, Potential need for CT to R/O PE per day staff
[2024-09-02] MEDS ORDERED: MethylPREDNISolone Sod Succ 125 MG Vial IV ONE (20:30)
--- NOTE | 2024-09-02 21:33 | NUR ---
pT GIVEN is AND fLUTTER VALVE - EDUCATION ADMINISTERED ON USE AND RESON FOR USE PT VERBALLY UNDERSTOOD AND DID A RETURN DEMONSTRATION OF BOTH PT WILL ATTEMPT TO USE 10X AN HOUR WHILE AWAKE OR WHEN HE STARTS TO FEEL ANXIOUS R/T BREATHING
[2024-09-03] VITALS (20 sets, daily range): BP systolic 84–130; BP diastolic 45–100
--- NOTE | 2024-09-03 06:13 | NUR ---
SIF SUMMARY: pT IS ALERT ND ORIENTD ABLE TO MAKE HIS NEEDS KNOWN, NSR-ST WITH FREQUENT PVC, BIGEMINEY, PT LUNGS COURSE WITH WHEZING OTED ON INIRATION, TERIS STARTED I DUCATION FLUTER VLAE EDUCATIOAND PRACTICE PT CAN COUGH AND DEEP BREATH WHEN PROMPTED, NPO SINCE MIDNIGHT AWAITING UPCOMING SURGERY TO LEFT TOES, PLESANT AND COOPERATIVE WITH CARES, CAN USE CALL LIGHT APPROPRIATELY, CALL LIGHT AND PERSONAL ITEMS WITH IN REACH AT THIS TIME
[2024-09-03] MEDS ORDERED: MethylPREDNISolone Sod Succ 125 MG Vial IV SCH ×2 (09:00)
[2024-09-03] MEDS ORDERED: Lidocaine HCl 2% 10 ML SDA ONE (09:48)
[2024-09-03] MEDS ORDERED: Bupivacaine 0.5% HCl 5 MG/ML 30MLVIAL ONE (09:49)
--- NOTE | 2024-09-03 10:15 | NUR ---
PATIENT TAKEN TO PROCEDURE AT 1014; ALERT NO SIGNS OR SYMPTOMS OF DISTRESS, TAKEN BY BED.
[2024-09-03] MEDS ORDERED: Ipratropium/Albuterol SulF 2.5-0.5MG/3 ML Amp ONE (10:59)
[2024-09-03] MEDS ORDERED: HYDROmorphone HCl/Pf 1MG SYR IV PRN (11:25)
[2024-09-03] MEDS ORDERED: Albuterol 2.5 MG/3 ML VIAL INH PRN (11:25)
[2024-09-03] MEDS ORDERED: Ondansetron HCl 2 MG / ML 2ML Vial IV PRN (11:25)
[2024-09-03] MEDS ORDERED: FentaNYL Citrate 50 MCG/ML 2 ML Injection IV PRN ×2 (11:25→15:15)
[2024-09-03] MEDS ORDERED: propofoL 20 ML IV ONE (11:28)
[2024-09-03] MEDS ORDERED: FentaNYL Citrate 50 MCG/ML 2 ML Injection ONE (11:29)
[2024-09-03] MEDS ORDERED: Ondansetron HCl 2 MG / ML 2ML Vial ONE (11:30)
[2024-09-03] MEDS ORDERED: Phenylephrine HCl 100 MCG/ML-NS 10MLSYR (1MG/10ML) ONE (11:39)
--- NOTE | 2024-09-03 13:13 | NUR ---
POST OP NOTE: PATIENT ARRIVED TO THE UNIT AT 1254 VIA BED. PATIENT ALERT, VITALS OBTAINED; STABLE; SLIGHTLY SOFT; ONGOING; MD AWARE; CALLED REGUARDING MEDS; ADVISED TO GIVE ASPIRIN AND METOPROLOL ONLY. PATIENT TOLERATING PO INTAKE; GOT A DIET ORDER FROM DR. MONTANA. BLOOD SUGAR 148. DRESSING OF L TOES; C/D/I; PT DENIES PAIN. IN BED, CALL LIGHT WITHIN REACH, SIGNIFICANT OTHER AT BEDSIDE, NO SIGNS OR SYMPTOMS OF DISTRESS, PLAN OF CARE ONGOING; TRANSFER TO SURGICAL.
[2024-09-03] MEDS ORDERED: OxyCODONE HCL 5 MG TAB PO PRN (15:15)
--- NOTE | 2024-09-03 16:53 | NUR ---
SHIFT SUMMARY: PATIENT IS A&OX4/SBA ASSIST FWW HEEL TOUCH ONLY WITH L HEEL. HE IS POST OP FROM 2-3RD TO AMPUTATION ON THE L FOOT; PAIN CONTROLLED AT THIS TIME. PATIENT STABLE, TOLERATING PO INTAKE, AND VOIDED. PATIENT BACK IN BED POST BATHROOM; PROTECTIVE SACRAL DRESSING APPLIED TO NOW BLESSING COCCYX. CALL LIGHT WITHIN REACH, NO SIGNS OR SYMPTOMS OF DISTRESS, PLAN OF CARE ONGOING.
[2024-09-03] MEDS ORDERED: Ipratropium/Albuterol SulF 2.5-0.5MG/3 ML Amp INH SCH (19:58)
[2024-09-03] MEDS ORDERED: Vancomycin HCL 1,250 MG in NS 250 ML IV SCH (21:00)
[2024-09-04 05:00] LABS: BASOPHILS ABSOLUTE AUTO 0.02 K/mm3 (0.00-0.23); BASOPHILS PERCENT AUTO 0 % (0-2); EOSINOPHILS PERCENT AUTO 0 % (0-6); Hematocrit 45.5 % (37.0-53.0); IMMATURE GRAN ABSOLUTE AUTO 0.07 K/mm3 (0.00-0.10); IMMATURE GRAN PERCENT AUTO 0 % (0-1); LYMPHOCYTES ABSOLUTE AUTO 0.28 K/mm3 (0.84-5.20); LYMPHOCYTES PERCENT AUTO 2 % (21-46); MONOCYTES PERCENT AUTO 3 % (4-13); Mean Corpuscular HGB 29.2 pg (26.0-34.0); Mean Corpuscular Volume 89 fL (80-100); Mean Platelet Volume 9.9 fL (9.1-12.4); NEUTROPHILS ABSOLUTE AUTO 15.44 K/mm3 (1.96-9.15); NEUTROPHILS PERCENT AUTO 95 % (41-73); Platelet Count 194 K/mm3 (150-400); RDW Coefficient Variation 15.8 % (11.7-14.2); RDW Standard Deviation 51.9 fL (35.1-46.3); Red Blood Cell Count 5.13 M/mm3 (4.30-5.90); White Blood Cell Count 16.21 K/mm3 (4.00-11.30)
[2024-09-04 05:18] VITALS: BP 137/74
--- NOTE | 2024-09-04 05:20 | NUR ---
SHIFT SUMMARY NO ACUTE CHANGES OVERNIGHT. VSS ON RA >92%. ON TELE NS/BIGEM 70s. PTs L FOOT WRAPPED AND C/D/I. PLACED ON PILLOW TO ELEVATE THROUGHOUT NIGHT. PT DOES WELL WITH HEEL TOUCH WB WITH SBA & FWW TO BATHROOM. MINIMAL PAIN THROUGHOUT NIGHT, RELIEVED WITH PRNs PER EMAR. NO FURTHER QUESTIONS OR CONCERNS AT THIS TIME. WILL CONTINUE WITH PLAN OF CARE.
[2024-09-04 05:25] LABS: Alanine Aminotransfer (ALT/SGP 18 U/L (12-78); Albumin, Blood 2.7 g/dL (3.4-5.0); Albumin/Globulin Ratio 0.8 (0.8-1.8); Alk Phos 96 U/L (50-136); Anion Gap 10 mmol/L (3-11); Aspartate Aminotrans (AST/SGOT 23 U/L (12-37); Bilirubin, Total 0.3 mg/dL (0.1-1.0); Blood Urea Nitrogen 48 mg/dL (8-24); Bun/Creatinine Ratio 33.6 (12.0-20.0); CO2, Blood 25 mmol/L (21-32); Calcium, Blood 8.5 mg/dL (8.5-10.1); Chloride, Blood 105 mmol/L (98-108); Creatinine, Blood 1.43 mg/dL (0.60-1.20); Globulin, Blood 3.6 g/dL (2.2-4.0); Glomerular Filtration Rate 50 (60-); Glucose, Blood 148 mg/dL (70-99); Potassium, Blood 4.7 mmol/L (3.5-5.5); Sodium, Blood 135 mmol/L (136-145); Total Protein, Blood 6.3 g/dL (6.4-8.2)
[2024-09-04 08:23] VITALS: BP 147/52
[2024-09-04] MEDS ORDERED: PredniSONE 20 MG Tab PO SCH (09:00)
[2024-09-04 11:59] VITALS: BP 150/53
[2024-09-04] MEDS ORDERED: Heparin Sodium,Porcine 5,000 UNIT/0.5 ML SDV SC SCH (14:00)
[2024-09-04 15:33] VITALS: BP 135/59
--- NOTE | 2024-09-04 17:58 | NUR ---
PT A&OX4 CALM AND COOPERATIVE. VSS ON RA >92%. USES BATHROOM WITH SBA. VALERIA WITH HEEL TOUCH AND FWW. PT REPORTED PAIN ON LEFT FOOT. MEDICATED PER EMAR. BED IS LOW AND LOCKED AND PT CALLS APPROPRIATELY.
[2024-09-04 19:51] VITALS: BP 123/56
[2024-09-04 23:41] VITALS: BP 126/52
[2024-09-05 00:01] LABS: Vancomycin, Peak 36.3 ug/mL (20.0-40.0)
--- NOTE | 2024-09-05 04:12 | NUR ---
SHIFT SUMMARY NO ACUTE CHANGES OVERNIGHT. PT REMAINS A&OX4. VSS ON RA >92%. PT AMBULATING TO BATHROOM WITH ASSISTANCE. IV ABX GIVEN PER EMAR. NO C/O PAIN THROUGHOUT NIGHT. L LEG REMAINS ELEVATED ON PILLOW THROUGHOUT NIGHT. NO FURTHER QUESTIONS OR CONCERNS AT THIS TIME. WILL CONTINUE WITH PLAN OF CARE. CALL GAN WITHIN REACH.
[2024-09-05 04:31] VITALS: BP 131/66
[2024-09-05 04:47] LABS: BASOPHILS ABSOLUTE AUTO 0.01 K/mm3 (0.00-0.23); BASOPHILS PERCENT AUTO 0 % (0-2); EOSINOPHILS PERCENT AUTO 0 % (0-6); Hematocrit 42.7 % (37.0-53.0); Hemoglobin 14.1 g/dL (13.5-17.5); IMMATURE GRAN ABSOLUTE AUTO 0.04 K/mm3 (0.00-0.10); IMMATURE GRAN PERCENT AUTO 0 % (0-1); LYMPHOCYTES ABSOLUTE AUTO 0.52 K/mm3 (0.84-5.20); LYMPHOCYTES PERCENT AUTO 4 % (21-46); MONOCYTES ABSOLUTE AUTO 0.84 K/mm3 (0.16-1.47); MONOCYTES PERCENT AUTO 6 % (4-13); Mean Corpuscular HGB 28.9 pg (26.0-34.0); Mean Corpuscular Volume 88 fL (80-100); NEUTROPHILS ABSOLUTE AUTO 12.19 K/mm3 (1.96-9.15); NEUTROPHILS PERCENT AUTO 90 % (41-73); Platelet Count 176 K/mm3 (150-400); RDW Coefficient Variation 15.5 % (11.7-14.2); RDW Standard Deviation 49.4 fL (35.1-46.3); Red Blood Cell Count 4.88 M/mm3 (4.30-5.90)
[2024-09-05 05:16] LABS: Bun/Creatinine Ratio 41.7 (12.0-20.0); Calcium, Blood 8.4 mg/dL (8.5-10.1); Creatinine, Blood 1.2 mg/dL (0.60-1.20); Potassium, Blood 4.2 mmol/L (3.5-5.5)
[2024-09-05 08:47] VITALS: BP 143/69
[2024-09-05] MEDS ORDERED: Furosemide 40 MG Tab PO SCH (09:00)
[2024-09-05] MEDS ORDERED: Spironolactone 12.5 MG TAB PO SCH (09:00)
[2024-09-05] MEDS ORDERED: Arginine/Glutamine/Calcium Hmb 1 Packet PO SCH (09:00)
[2024-09-05] MEDS ORDERED: PROBIOTIC ACID1 EAC8 PO (12:34)
[2024-09-05] MEDS ORDERED: METO25ER PO (12:34)
[2024-09-05] MEDS ORDERED: CEPHALEXIN500 MG PO (12:43)
[2024-09-05 12:50] VITALS: BP 126/72
--- NOTE | 2024-09-05 13:38 | NUR ---
SHIFT SUMMARY/ DISCHARGE TO HOME: PT DISCHARGED TO HOME IN NO ACUTE STRESS. PT WAS GIVEN WRITTEN AND VERBAL DC INSTRUCTIONS BY THIS EN AND WAS INSTRUCTED TO COME BACK TO THIS FACILITY IF SYMPTOMS WORSEN. ALL OF PTS QUESTIONS OR CONCERNS WERE ADDRESSED AND DENIES ANY FURTHER QUESTIONS OR CONCERNS. BOTH OF PTS IV'S WERE REMOVED WITH CATHETER INTACT. PT WAS SENT HOME WITH HIS WALKER AND BELONGINGS. PT WHEELED OUT VIA WHEEL CHAIR BY PEARL.
== END 2024-09-05 13:40 | disposition home health service (06) | DRG 253 ==
LOC: ER 16:38 → PCU 20:12 → ERHOLD 20:12 → PCU 22:02
PROVIDERS: Family Medicine; Pharmacist; Student in an Organized Health Care Education/Training Program; ADMIT Internal Medicine
PROC: 047L341 Dilation of Left Femoral Artery with Drug-eluting Intraluminal Device, using Drug-Coated Balloon, Percutaneous Approach (ICD-10-PCS; principal; 2024-09-02)
PROC: B41G1ZZ Fluoroscopy of Left Lower Extremity Arteries using Low Osmolar Contrast (ICD-10-PCS; 2024-09-02)
PROC: B44GZZ3 Ultrasonography of Left Lower Extremity Arteries, Intravascular (ICD-10-PCS; 2024-09-02)
PROC: 0Y6S0Z1 Detachment at Left 2nd Toe, High, Open Approach (ICD-10-PCS; 2024-09-03)
PROC: 0Y6U0Z1 Detachment at Left 3rd Toe, High, Open Approach (ICD-10-PCS; 2024-09-03)
DX: E11.52 Type 2 diabetes mellitus with diabetic peripheral angiopathy with gangrene (principal); I13.0 Hypertensive heart and chronic kidney disease with heart failure and stage 1 through stage 4 chronic kidney disease, or unspecified chronic kidney disease; I96 Gangrene, not elsewhere classified; I50.32 Chronic diastolic (congestive) heart failure; Z66 Do not resuscitate; I25.10 Atherosclerotic heart disease of native coronary artery without angina pectoris; E78.5 Hyperlipidemia, unspecified; F32.A Depression, unspecified; J44.89 Other specified chronic obstructive pulmonary disease; E11.22 Type 2 diabetes mellitus with diabetic chronic kidney disease; N18.30 Chronic kidney disease, stage 3 unspecified; Z79.899 Other long term (current) drug therapy; Z79.82 Long term (current) use of aspirin; Z79.811 Long term (current) use of aromatase inhibitors; Z91.040 Latex allergy status; Z88.8 Allergy status to other drugs, medicaments and biological substances; Z90.89 Acquired absence of other organs; Z90.49 Acquired absence of other specified parts of digestive tract; Z95.5 Presence of coronary angioplasty implant and graft; Z95.1 Presence of aortocoronary bypass graft; Z98.890 Other specified postprocedural states; Z85.46 Personal history of malignant neoplasm of prostate
CPT/HCPCS: 36415; 71045; 76937; 80048; 80053; 80202; 82947; 83036; 83880; 84484; 85025; 85027; 85379; 85520; 85610; 85730; 88305; 88311; 93005; 93010; 93926; 94640; 94664; 94760; 94762; 97116; 97161; 97530; 99152; 99153; 99285-25; A9270; C1725; C1751; C1753; C1760; C1769; C1874; C1887; C1894; C2623; J0696; J1644; J2003; J2250; J2371; J2405; J2704; J2919; J3010; J3370; J7030; J7040; J7050; J7512; Q9967

== ENCOUNTER 2024-10-05 03:16 | Day surgery (SDC) | payer OTHER ==
[~2024-10-05 03:16] MED LIST changes: +CEPHALEXIN500 MG PO; +PROBIOTIC ACID1 EAC8 PO; +TRELEGY ELLIPT1 EACH INH
[2024-10-05] MEDS ORDERED: Lidocaine HCl 4% Cream 5 GM ONE (13:02)
== END 2024-10-05 23:00 | disposition home or self-care (01) ==
LOC: WOUND 03:16
DX: E11.621 Type 2 diabetes mellitus with foot ulcer (principal); L97.522 Non-pressure chronic ulcer of other part of left foot with fat layer exposed; E11.51 Type 2 diabetes mellitus with diabetic peripheral angiopathy without gangrene; E11.40 Type 2 diabetes mellitus with diabetic neuropathy, unspecified; I25.10 Atherosclerotic heart disease of native coronary artery without angina pectoris; J44.9 Chronic obstructive pulmonary disease, unspecified; I12.9 Hypertensive chronic kidney disease with stage 1 through stage 4 chronic kidney disease, or unspecified chronic kidney disease; E11.22 Type 2 diabetes mellitus with diabetic chronic kidney disease; N18.30 Chronic kidney disease, stage 3 unspecified; Z85.46 Personal history of malignant neoplasm of prostate; Z95.1 Presence of aortocoronary bypass graft; Z89.422 Acquired absence of other left toe(s)
CPT/HCPCS: A9270; G0463

== ENCOUNTER 2024-10-11 01:06 | Day surgery (SDC) | payer OTHER | END 2024-10-11 23:00 | LOC: WOUND 01:06 | DX: E11.621 Type 2 diabetes mellitus with foot ulcer (principal); L97.522 Non-pressure chronic ulcer of other part of left foot with fat layer exposed; E11.51 Type 2 diabetes mellitus with diabetic peripheral angiopathy without gangrene; Z89.422 Acquired absence of other left toe(s); E11.40 Type 2 diabetes mellitus with diabetic neuropathy, unspecified; I10 Essential (primary) hypertension; I25.10 Atherosclerotic heart disease of native coronary artery without angina pectoris | CPT/HCPCS: G0463 ==

== ENCOUNTER 2024-10-31 03:33 | Day surgery (SDC) | payer OTHER ==
[2024-11-03] MEDS ORDERED: PROAIR RESPICL90 MCG INH (14:55)
[2024-11-05] MEDS ORDERED: IPRAT-ALBUT 0.5-3 ML INH (11:28)
[2024-11-05] MEDS ORDERED: PRED20 PO (11:29)
== END 2024-10-31 23:49 | disposition home or self-care (01) ==
LOC: WOUND 03:33
DX: E11.621 Type 2 diabetes mellitus with foot ulcer (principal); L97.522 Non-pressure chronic ulcer of other part of left foot with fat layer exposed; E11.51 Type 2 diabetes mellitus with diabetic peripheral angiopathy without gangrene; E11.40 Type 2 diabetes mellitus with diabetic neuropathy, unspecified; I25.10 Atherosclerotic heart disease of native coronary artery without angina pectoris; I10 Essential (primary) hypertension; Z89.422 Acquired absence of other left toe(s)
CPT/HCPCS: G0463

== ENCOUNTER 2024-11-23 03:17 | Day surgery (SDC) | payer OTHER ==
[~2024-11-23 03:17] MED LIST changes: +IPRAT-ALBUT 0.5-3 ML INH; +PRED20 PO; +PROAIR RESPICL90 MCG INH
[2024-11-23] MEDS ORDERED: Lidocaine HCl 4% Cream 5 GM ONE (14:34)
== END 2024-11-23 23:00 | disposition home or self-care (01) ==
LOC: WOUND 03:17
DX: E11.621 Type 2 diabetes mellitus with foot ulcer (principal); L97.522 Non-pressure chronic ulcer of other part of left foot with fat layer exposed; E11.51 Type 2 diabetes mellitus with diabetic peripheral angiopathy without gangrene; E11.40 Type 2 diabetes mellitus with diabetic neuropathy, unspecified; Z89.422 Acquired absence of other left toe(s)
CPT/HCPCS: A9270

== ENCOUNTER 2024-11-30 02:03 | Day surgery (SDC) | payer OTHER ==
[2024-11-30] MEDS ORDERED: Lidocaine HCl 4% Cream 5 GM ONE (13:23)
== END 2024-11-30 23:00 | disposition home or self-care (01) ==
LOC: WOUND 02:03
DX: E11.621 Type 2 diabetes mellitus with foot ulcer (principal); L97.526 Non-pressure chronic ulcer of other part of left foot with bone involvement without evidence of necrosis; L97.522 Non-pressure chronic ulcer of other part of left foot with fat layer exposed; E11.51 Type 2 diabetes mellitus with diabetic peripheral angiopathy without gangrene; E11.40 Type 2 diabetes mellitus with diabetic neuropathy, unspecified; Z89.422 Acquired absence of other left toe(s)
CPT/HCPCS: A9270

== ENCOUNTER 2024-12-07 03:48 | Day surgery (SDC) | payer OTHER ==
[2024-12-07] MEDS ORDERED: Lidocaine HCl 4% Cream 5 GM ONE (13:16)
== END 2024-12-07 23:00 | disposition home or self-care (01) ==
LOC: WOUND 03:48
DX: E11.621 Type 2 diabetes mellitus with foot ulcer (principal); L97.525 Non-pressure chronic ulcer of other part of left foot with muscle involvement without evidence of necrosis; L97.522 Non-pressure chronic ulcer of other part of left foot with fat layer exposed; E11.51 Type 2 diabetes mellitus with diabetic peripheral angiopathy without gangrene; E11.40 Type 2 diabetes mellitus with diabetic neuropathy, unspecified; Z89.422 Acquired absence of other left toe(s)
CPT/HCPCS: A9270

== ENCOUNTER 2024-12-14 03:02 | Day surgery (SDC) | payer OTHER ==
[2024-12-14] MEDS ORDERED: Lidocaine HCl 4% Cream 5 GM ONE (13:35)
[2024-12-15] MEDS ORDERED: IPRAT-ALBUT 0.5-3 ML INH (16:18)
== END 2024-12-14 23:00 | disposition home or self-care (01) ==
LOC: WOUND 03:02
DX: E11.621 Type 2 diabetes mellitus with foot ulcer (principal); L97.525 Non-pressure chronic ulcer of other part of left foot with muscle involvement without evidence of necrosis; E11.51 Type 2 diabetes mellitus with diabetic peripheral angiopathy without gangrene; E11.40 Type 2 diabetes mellitus with diabetic neuropathy, unspecified; Z89.422 Acquired absence of other left toe(s)
CPT/HCPCS: A9270; G0463

== ENCOUNTER 2024-12-14 15:34 | Inpatient (IN) | payer OTHER ==
[~2024-12-14] VITALS: Ht 172.7 cm; Wt 66.0 kg
[2024-12-14 15:59] LABS: BASOPHILS ABSOLUTE AUTO 0.05 K/mm3 (0.00-0.23); BASOPHILS PERCENT AUTO 1 % (0-2); EOSINOPHILS ABSOLUTE AUTO 1.58 K/mm3 (0.00-0.68); EOSINOPHILS PERCENT AUTO 17 % (0-6); Hematocrit 48.9 % (37.0-53.0); Hemoglobin 16.0 g/dL (13.5-17.5); IMMATURE GRAN ABSOLUTE AUTO 0.06 K/mm3 (0.00-0.10); IMMATURE GRAN PERCENT AUTO 1 % (0-1); LYMPHOCYTES ABSOLUTE AUTO 0.76 K/mm3 (0.84-5.20); LYMPHOCYTES PERCENT AUTO 8 % (21-46); MONOCYTES ABSOLUTE AUTO 0.49 K/mm3 (0.16-1.47); MONOCYTES PERCENT AUTO 5 % (4-13); Mean Corpuscular HGB Conc 32.7 g/dL (31.5-36.5); Mean Corpuscular Volume 94 fL (80-100); NEUTROPHILS ABSOLUTE AUTO 6.21 K/mm3 (1.96-9.15); NEUTROPHILS PERCENT AUTO 68 % (41-73); NRBC ABSOLUTE 0.00 K/mm3 (0.00-0.02); NRBC Auto 0.0 /100 WBC (0.0-0.2); Platelet Count 220 K/mm3 (150-400); RDW Coefficient Variation 14.2 % (11.7-14.2); RDW Standard Deviation 48.7 fL (35.1-46.3)
[2024-12-14 16:13] LABS: Alanine Aminotransfer (ALT/SGP 19.0 U/L (12-78); Albumin, Blood 3.0 g/dL (3.4-5.0); Albumin/Globulin Ratio 0.8 (0.8-1.8); Anion Gap 11.0 mmol/L (3-11); Aspartate Aminotrans (AST/SGOT 24.0 U/L (12-37); Bilirubin, Total 0.5 mg/dL (0.1-1.0); Blood Urea Nitrogen 21.0 mg/dL (8-24); CO2, Blood 24.0 mmol/L (21-32); Calcium, Blood 8.5 mg/dL (8.5-10.1); Chloride, Blood 105.0 mmol/L (98-108); Creatinine, Blood 1.05 mg/dL (0.60-1.20); Globulin, Blood 3.9 g/dL (2.2-4.0); Glucose, Blood 91.0 mg/dL (70-99); Potassium, Blood 4.0 mmol/L (3.5-5.5); Sodium, Blood 136.0 mmol/L (136-145); Total Protein, Blood 6.9 g/dL (6.4-8.2)
[2024-12-14] MEDS ORDERED: Magnesium Sulf 2 GM/Water 50ML 50 ML IV ONE (17:10)
[2024-12-14 17:40] LABS: pH Blood Venous 7.33 (7.34-7.37)
[2024-12-14] MEDS ORDERED: Albuterol 2.5 MG/3 ML VIAL INH PRN (18:05)
[2024-12-14] MEDS ORDERED: Ipratropium/Albuterol SulF 2.5-0.5MG/3 ML Amp INH SCH (18:10)
[2024-12-14] MEDS ORDERED: Ondansetron HCl 2 MG / ML 2ML Vial IV PRN (18:10)
[2024-12-14 18:19] LABS: Influenza A, PCR NEGATIVE (NEGATIVE); Influenza B, PCR NEGATIVE (NEGATIVE); Resp Syncytial Virus, PCR NEGATIVE (NEGATIVE); SARS-Cov-2 (COVID-19) PCR, MMC NEGATIVE (NEGATIVE)
[2024-12-14] MEDS ORDERED: TRELEGY ELLIPT1 EACH INH (20:06)
[2024-12-14 20:22] VITALS: BP 147/83
[2024-12-14] MEDS ORDERED: Insulin Human Lispro 100 Units/ML 3ML Syringe SC SCH (21:00)
[2024-12-14 21:22] LABS: pH Blood Venous 7.37 (7.34-7.37)
--- NOTE | 2024-12-14 21:47 | NUR ---
MED REC UNABLE TO COMPLETE MED REC WITH PATIENT. HE SAID HIS TAKES CARE OF HIS MEDICATIONS FOR HIM AND HE IS NOT SURE WHAT HE TAKES.
[2024-12-14 22:54] VITALS: BP 135/92
[2024-12-15 03:02] VITALS: BP 151/59
--- NOTE | 2024-12-15 04:14 | NUR ---
TELEMETRY PT IN AND OUT OF BIGEMINY THIS EVENING. PROVIDER NOTIFIED AND MORNING LABS ORDERED. NO FURTHER ORDERS AT THIS TIME.
--- NOTE | 2024-12-15 04:29 | NUR ---
NIGHT SUMMARY: PT AOX4, UP SBA W/FWW, WEANED TO 2LNC OVERNIGHT @ 94%. PT DENIES PAIN. ABLE TO MAKE NEEDS KNOWN. BED IN LOW POSITION AND CALL LIGHT WITHIN REACH. WOUND NOTED TO LEFT FOOT ON 4TH AND 5TH TOE. UNABLE TO COMPLETE MED REC WITH PATIENT BECAUSE HE DOESNT MANAGE HIS OWN MEDS.
--- NOTE | 2024-12-15 04:43 | NUR ---
PT IS REFUSING LABS THIS AM, REQUESTING TO HAVE LAB DRAW AT 0700 TODAY - WILL RELAY THIS TO TATA CONNORS WHEN SHE RETURNS FROM BREAK.
[2024-12-15 07:14] VITALS: BP 142/69
[2024-12-15 08:03] LABS: Alanine Aminotransfer (ALT/SGP 19.0 U/L (12-78); Albumin, Blood 2.7 g/dL (3.4-5.0); Albumin/Globulin Ratio 0.8 (0.8-1.8); Anion Gap 10.0 mmol/L (3-11); Aspartate Aminotrans (AST/SGOT 15.0 U/L (12-37); Bilirubin, Total 0.5 mg/dL (0.1-1.0); Blood Urea Nitrogen 27.0 mg/dL (8-24); CO2, Blood 25.0 mmol/L (21-32); Calcium, Blood 8.4 mg/dL (8.5-10.1); Chloride, Blood 105.0 mmol/L (98-108); Creatinine, Blood 1.01 mg/dL (0.60-1.20); Globulin, Blood 3.5 g/dL (2.2-4.0); Glucose, Blood 213.0 mg/dL (70-99); Magnesium, Blood 2.4 mg/dL (1.6-2.4); Potassium, Blood 3.8 mmol/L (3.5-5.5); Sodium, Blood 136.0 mmol/L (136-145); Total Protein, Blood 6.2 g/dL (6.4-8.2)
[2024-12-15] MEDS ORDERED: Enoxaparin 30 MG/0.3 ML SYR SC SCH (09:00)
[2024-12-15] MEDS ORDERED: Budesonide 0.25 MG / 2 ML RESP INH SCH (11:20)
[2024-12-15 15:22] VITALS: BP 151/49
[2024-12-15] MEDS ORDERED: IPRAT-ALBUT 0.5-3 ML INH (16:18)
--- NOTE | 2024-12-15 18:42 | NUR ---
DAY SUMMARY A&O 3-4, ABLE TO ANSWER ALL QUESTIONS BUT IS VERY FORGETFUL, VSS, DENIES PAIN, WILL CONT TO MONTIOR UNTIL REPORT GIVEN TO ONCOMING NURSE,
[2024-12-15 19:27] VITALS: BP 141/77
[2024-12-16 00:39] VITALS: BP 150/70
[2024-12-16 04:21] VITALS: BP 134/74
--- NOTE | 2024-12-16 04:59 | NUR ---
SHIFT SUMMARY PT A&Ox4 AND PLEASANT. NO C/O PAIN. PT ON 1L OF OXYGEN AND SATING ABOVE 94% VIA CONTINIOUS PULSE OX. SOLUMEDRAL AND ORAL ABX GIVEN PER EMAR. DRESSING ON LEFT 4TH TOE CHANGED. PT ADAMANTLY REFUSED MORNING LABS, STATING "I'M NOT GETTING POKED AGAIN". VSS. BED IN LOWEST POSITION AND CALL LIGHT IN REACH.
[2024-12-16 07:23] VITALS: BP 127/80
[2024-12-16 09:07] LABS: Albumin, Blood 3.1 g/dL (3.4-5.0); Anion Gap 11 mmol/L (3-11); Blood Urea Nitrogen 28 mg/dL (8-24); CO2, Blood 26 mmol/L (21-32); Calcium, Blood 8.9 mg/dL (8.5-10.1); Chloride, Blood 102 mmol/L (98-108); Creatinine, Blood 0.97 mg/dL (0.60-1.20); Glucose, Blood 197 mg/dL (70-99); Magnesium, Blood 2.3 mg/dL (1.6-2.4); Phosphorus, Blood 3.9 mg/dL (2.5-4.9); Potassium, Blood 3.5 mmol/L (3.5-5.5); Sodium, Blood 135 mmol/L (136-145)
[2024-12-16 11:24] VITALS: BP 114/63
[2024-12-16] MEDS ORDERED: Prinivil10 MG PO (12:05)
[2024-12-16] MEDS ORDERED: AZIT500 PO (12:05)
[2024-12-16] MEDS ORDERED: FURO20 PO (12:06)
[2024-12-16] MEDS ORDERED: METO25ER PO (12:07)
[2024-12-16] MEDS ORDERED: HUMALOG JU100 UNIT/2 SC (12:07)
[2024-12-16] MEDS ORDERED: Prednisone10 MG PO (12:08)
[2024-12-16] MEDS ORDERED: ALBU2.5V5 INH (12:32)
--- NOTE | 2024-12-16 12:57 | NUR ---
SHIFT/DISCHARGE SUMMARY: PATIENT A/OX4, PLEASANT AND COOPERATIVE c CARE. PATIENT DENIES CP/PRESSURE, SOB, N/V AND DIZZINESS. PATIENT ON TELE, SR HR IN THE HIGH 80'S BPM c FREQUENT PVC/PAC. PATIENT PLACED ON RA AT AROUND 1000, SATTING 90-95%, DENIES SOB T/O. PATIENT HAD HOME O2 EVAL AND DOES NOT NEEDED O2. PATIENT RECEIVED SCHEDULED MEDS PER EMAR. VITAL SIGNS REVIEWED. PIV DC'D. PATIENT HAS HAD NO COMPLAINTS OR DENIES NEW CONCERNED THIS SHIFT. PATIENT ONLY REQUEST TO GO HOME AND DR. CERVANTES IS AWARE OF THE REQUEST. PATIENT DISCHARGE HOME. DISCHARGE INSTRUCTIONS PACKET GIVEN TO PATIENT. PATIENT AND SPOUSE AT BEDSIDE EDUCATED ON ADMITTING DX'S OF CHF AND COPD EXACERBATION, S/S, TX, SELF CARE, DAILY WEIGHT, NEW RX AND TO F/U c PCP. PATIENT AND SPOUSE VERBALIZED UNDERSTANDING AND NO FURTHER QUESTIONS. RX WAS FAXED TO PATIENT PREFERRED [facility]. ALL PERSONAL BELONGINGS WERE SENT HOME c PATIENT. PATIENT LEFT THE ROOM AT 1300 TRANSPORTED VIA WC BY MARKO KANG TO PATIENT ENTRANCE, RIDE AWAITING FOR HIM.
== END 2024-12-16 13:33 | disposition home or self-care (01) | DRG 291 ==
LOC: ER 15:34 → MEDS 15:35 → ENPENDDIS 12-16 11:02 → MEDS 12-16 13:33
PROVIDERS: Emergency Medicine; Internal Medicine; Nurse Practitioner Acute Care; Student in an Organized Health Care Education/Training Program; ADMIT Internal Medicine
DX: I13.0 Hypertensive heart and chronic kidney disease with heart failure and stage 1 through stage 4 chronic kidney disease, or unspecified chronic kidney disease (principal); I50.33 Acute on chronic diastolic (congestive) heart failure; J96.21 Acute and chronic respiratory failure with hypoxia; J96.22 Acute and chronic respiratory failure with hypercapnia; J44.1 Chronic obstructive pulmonary disease with (acute) exacerbation; E78.5 Hyperlipidemia, unspecified; Z66 Do not resuscitate; I25.10 Atherosclerotic heart disease of native coronary artery without angina pectoris; E11.51 Type 2 diabetes mellitus with diabetic peripheral angiopathy without gangrene; I49.3 Ventricular premature depolarization; R00.8 Other abnormalities of heart beat; E11.621 Type 2 diabetes mellitus with foot ulcer; L97.529 Non-pressure chronic ulcer of other part of left foot with unspecified severity; N18.9 Chronic kidney disease, unspecified; E11.22 Type 2 diabetes mellitus with diabetic chronic kidney disease; Z95.1 Presence of aortocoronary bypass graft; Z99.81 Dependence on supplemental oxygen; Z91.040 Latex allergy status; Z88.6 Allergy status to analgesic agent; Z88.8 Allergy status to other drugs, medicaments and biological substances; Z79.84 Long term (current) use of oral hypoglycemic drugs; Z79.82 Long term (current) use of aspirin; Z85.46 Personal history of malignant neoplasm of prostate; Z86.16 Personal history of COVID-19; Z89.422 Acquired absence of other left toe(s); Z87.891 Personal history of nicotine dependence
CPT/HCPCS: 36415; 71046; 80053; 80069; 82803; 82947; 83735; 83880; 85025; 87637; 93005; 93010; 93306; 94640; 94664; 94760; 94761; 94762; 96365; 96366; 96372; 96375; 96376; 97116; 97162; 99285-25; A9270; G0378; J1650; J1938; J2919; J3475

== ENCOUNTER 2024-12-21 03:47 | Day surgery (SDC) | payer OTHER ==
[~2024-12-21 03:47] MED LIST changes: +ALBU2.5V5 INH; +AZIT500 PO; +FURO20 PO; +HUMALOG JU100 UNIT/2 SC; +Prednisone10 MG PO
[2024-12-21] MEDS ORDERED: Lidocaine HCl 4% Cream 5 GM ONE (13:30)
== END 2024-12-21 23:00 | disposition home or self-care (01) ==
LOC: WOUND 03:47
DX: E11.621 Type 2 diabetes mellitus with foot ulcer (principal); L97.525 Non-pressure chronic ulcer of other part of left foot with muscle involvement without evidence of necrosis; E11.51 Type 2 diabetes mellitus with diabetic peripheral angiopathy without gangrene; E11.40 Type 2 diabetes mellitus with diabetic neuropathy, unspecified; Z89.422 Acquired absence of other left toe(s)
CPT/HCPCS: A9270

== ENCOUNTER 2025-01-11 07:16 | Day surgery (SDC) | payer OTHER ==
[2025-01-11] MEDS ORDERED: Lidocaine HCl 4% Cream 5 GM ONE (11:14)
== END 2025-01-11 23:00 | disposition home or self-care (01) ==
LOC: WOUND 07:16
DX: E11.621 Type 2 diabetes mellitus with foot ulcer (principal); L97.525 Non-pressure chronic ulcer of other part of left foot with muscle involvement without evidence of necrosis; L97.522 Non-pressure chronic ulcer of other part of left foot with fat layer exposed; E11.51 Type 2 diabetes mellitus with diabetic peripheral angiopathy without gangrene; E11.40 Type 2 diabetes mellitus with diabetic neuropathy, unspecified; Z89.422 Acquired absence of other left toe(s)
CPT/HCPCS: A6196; A6213; A9270; G0463

== ENCOUNTER 2025-01-17 03:29 | Day surgery (SDC) | payer OTHER ==
[2025-01-17] MEDS ORDERED: Lidocaine HCl 4% Cream 5 GM ONE (14:53)
== END 2025-01-17 23:00 | disposition home or self-care (01) ==
LOC: WOUND 03:29
DX: E11.621 Type 2 diabetes mellitus with foot ulcer (principal); L97.525 Non-pressure chronic ulcer of other part of left foot with muscle involvement without evidence of necrosis; L97.522 Non-pressure chronic ulcer of other part of left foot with fat layer exposed; E11.51 Type 2 diabetes mellitus with diabetic peripheral angiopathy without gangrene; E11.40 Type 2 diabetes mellitus with diabetic neuropathy, unspecified; I25.10 Atherosclerotic heart disease of native coronary artery without angina pectoris; I10 Essential (primary) hypertension; Z89.422 Acquired absence of other left toe(s)
CPT/HCPCS: A9270

== ENCOUNTER 2025-01-26 13:03 | Inpatient (IN) | payer OTHER ==
[~2025-01-26] VITALS: Ht 175.3 cm; Wt 69.3 kg
[2025-01-26 14:34] LABS: BASOPHILS ABSOLUTE AUTO 0.05 K/mm3 (0.00-0.23); BASOPHILS PERCENT AUTO 0 % (0-2); EOSINOPHILS ABSOLUTE AUTO 1.54 K/mm3 (0.00-0.68); EOSINOPHILS PERCENT AUTO 11 % (0-6); Hematocrit 46.5 % (37.0-53.0); Hemoglobin 15.3 g/dL (13.5-17.5); IMMATURE GRAN ABSOLUTE AUTO 0.05 K/mm3 (0.00-0.10); IMMATURE GRAN PERCENT AUTO 0 % (0-1); LYMPHOCYTES ABSOLUTE AUTO 1.10 K/mm3 (0.84-5.20); LYMPHOCYTES PERCENT AUTO 8 % (21-46); MONOCYTES ABSOLUTE AUTO 0.48 K/mm3 (0.16-1.47); MONOCYTES PERCENT AUTO 3 % (4-13); Mean Corpuscular HGB Conc 32.9 g/dL (31.5-36.5); Mean Corpuscular Volume 90 fL (80-100); NEUTROPHILS ABSOLUTE AUTO 10.78 K/mm3 (1.96-9.15); NEUTROPHILS PERCENT AUTO 77 % (41-73); NRBC ABSOLUTE 0.00 K/mm3 (0.00-0.02); NRBC Auto 0.0 /100 WBC (0.0-0.2); Platelet Count 255 K/mm3 (150-400); RDW Coefficient Variation 14.7 % (11.7-14.2); RDW Standard Deviation 48.1 fL (35.1-46.3)
[2025-01-26 14:40] LABS: pH Blood Venous 7.31 (7.34-7.37)
[2025-01-26] MEDS ORDERED: Ipratropium/Albuterol SulF 2.5-0.5MG/3 ML Amp INH ONE (14:45)
[2025-01-26 15:46] LABS: Alanine Aminotransfer (ALT/SGP 20.0 U/L (12-78); Albumin, Blood 3.3 g/dL (3.4-5.0); Albumin/Globulin Ratio 0.9 (0.8-1.8); Anion Gap 13.0 mmol/L (3-11); Aspartate Aminotrans (AST/SGOT 14.0 U/L (12-37); Bilirubin, Total 0.4 mg/dL (0.1-1.0); Blood Urea Nitrogen 39.0 mg/dL (8-24); CO2, Blood 21.0 mmol/L (21-32); Calcium, Blood 9.2 mg/dL (8.5-10.1); Chloride, Blood 106.0 mmol/L (98-108); Creatinine, Blood 1.32 mg/dL (0.60-1.20); Globulin, Blood 3.7 g/dL (2.2-4.0); Glucose, Blood 168.0 mg/dL (70-99); Potassium, Blood 4.0 mmol/L (3.5-5.5); Sodium, Blood 136.0 mmol/L (136-145); Total Protein, Blood 7.0 g/dL (6.4-8.2)
[2025-01-26 16:06] LABS: Influenza A, PCR NEGATIVE (NEGATIVE); Influenza B, PCR NEGATIVE (NEGATIVE); Resp Syncytial Virus, PCR NEGATIVE (NEGATIVE); SARS-Cov-2 (COVID-19) PCR, MMC NEGATIVE (NEGATIVE)
[2025-01-26] MEDS ORDERED: Albuterol 2.5 MG/3 ML VIAL INH PRN (18:25)
[2025-01-26] MEDS ORDERED: NS 1,000 ML IV SCH (18:25)
[2025-01-26] MEDS ORDERED: Ipratropium/Albuterol SulF 2.5-0.5MG/3 ML Amp INH SCH (18:25)
[2025-01-26] MEDS ORDERED: Ondansetron HCl 2 MG / ML 2ML Vial IV PRN (18:30)
[2025-01-26 20:59] VITALS: BP 125/72
[2025-01-26] MEDS ORDERED: Lactobacil 2-S.Thermo-Bifido 1 1 Cap PO SCH (21:00)
[2025-01-26] MEDS ORDERED: Heparin Sodium,Porcine 5,000 UNIT/0.5 ML SDV SC SCH (21:00)
[2025-01-26 23:53] VITALS: BP 132/45
[2025-01-27 04:22] VITALS: BP 137/84
[2025-01-27 04:23] LABS: Hematocrit 44.4 % (37.0-53.0); Hemoglobin 14.9 g/dL (13.5-17.5); Mean Corpuscular HGB Conc 33.6 g/dL (31.5-36.5); Mean Corpuscular Volume 91 fL (80-100); NRBC ABSOLUTE 0.00 K/mm3 (0.00-0.02); NRBC Auto 0.0 /100 WBC (0.0-0.2); Platelet Count 236 K/mm3 (150-400); RDW Coefficient Variation 14.7 % (11.7-14.2); RDW Standard Deviation 48.0 fL (35.1-46.3)
[2025-01-27 04:42] LABS: Anion Gap 11.0 mmol/L (3-11); Blood Urea Nitrogen 42.0 mg/dL (8-24); CO2, Blood 23.0 mmol/L (21-32); Calcium, Blood 8.6 mg/dL (8.5-10.1); Chloride, Blood 106.0 mmol/L (98-108); Creatinine, Blood 1.24 mg/dL (0.60-1.20); Glucose, Blood 160.0 mg/dL (70-99); Magnesium, Blood 2.4 mg/dL (1.6-2.4); Potassium, Blood 4.5 mmol/L (3.5-5.5); Sodium, Blood 135.0 mmol/L (136-145)
--- NOTE | 2025-01-27 06:58 | NUR ---
SHIFT SUMMARY PT ADMITTED TO FLOOR APPROX 2049 FOR COPD EXACERBATION. PT PLEASANT AND COOPERATIVE WITH CARE. HE IS ABLE TO AMBULATE INDEPENDENTLY. HE SLEPT THROUGHOUT SHIFT AND WOKE FOR BATHROOM TRIPS.
[2025-01-27 07:42] VITALS: BP 151/60
[2025-01-27] MEDS ORDERED: NS 1,000 ML IV SCH (09:00)
[2025-01-27] MEDS ORDERED: Insulin Human Lispro 100 Units/ML 3ML Syringe SC SCH (11:30)
[2025-01-27 14:31] VITALS: BP 115/51
--- NOTE | 2025-01-27 16:24 | NUR ---
SHIFT SUMMARY PT AOX4, COOPERATIVE, ABLE TO MAKE NEEDS KNONW. PT IS IND IN ROOM WITH FWW. WEARS O2 PRN, NOT NOTED TODAY. TOLERATING MEDICATIONS. 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 BED IN LOWEST POSITOIN, CALL LIGHT WITHIN REACH.
[2025-01-27 20:26] VITALS: BP 121/69
[2025-01-27 23:30] VITALS: BP 125/86
[2025-01-28 04:44] VITALS: BP 117/91
--- NOTE | 2025-01-28 05:15 | NUR ---
BOTH OF PATIENTS IVS HE HAD WHEN I CAME ON TO SHIFT WERE BAD, BOTH WERE REMOVED. MULTIPLE TRIES AT PUTTING IN A NEW IV ACCESS, PATIENT DID NOT TOLERATE WELL AND BECAME A BIT IRRITABLE. NO PRN OXYGEN WAS USED TONIGHT. PATIENT RESTED WELL WITH ALL PERSONAL BELONGINGS IN REACH.
[2025-01-28 05:31] LABS: BASOPHILS ABSOLUTE AUTO 0.02 K/mm3 (0.00-0.23); BASOPHILS PERCENT AUTO 0 % (0-2); EOSINOPHILS ABSOLUTE AUTO 0.06 K/mm3 (0.00-0.68); EOSINOPHILS PERCENT AUTO 0 % (0-6); Hematocrit 45.1 % (37.0-53.0); Hemoglobin 15.0 g/dL (13.5-17.5); IMMATURE GRAN ABSOLUTE AUTO 0.09 K/mm3 (0.00-0.10); IMMATURE GRAN PERCENT AUTO 1 % (0-1); LYMPHOCYTES ABSOLUTE AUTO 0.64 K/mm3 (0.84-5.20); LYMPHOCYTES PERCENT AUTO 4 % (21-46); MONOCYTES ABSOLUTE AUTO 0.98 K/mm3 (0.16-1.47); MONOCYTES PERCENT AUTO 6 % (4-13); Mean Corpuscular HGB Conc 33.3 g/dL (31.5-36.5); Mean Corpuscular Volume 89 fL (80-100); NEUTROPHILS ABSOLUTE AUTO 15.85 K/mm3 (1.96-9.15); NEUTROPHILS PERCENT AUTO 90 % (41-73); NRBC ABSOLUTE 0.00 K/mm3 (0.00-0.02); NRBC Auto 0.0 /100 WBC (0.0-0.2); Platelet Count 236 K/mm3 (150-400); RDW Coefficient Variation 15.0 % (11.7-14.2); RDW Standard Deviation 48.1 fL (35.1-46.3)
[2025-01-28 05:57] LABS: Albumin, Blood 3.0 g/dL (3.4-5.0); Anion Gap 10 mmol/L (3-11); Blood Urea Nitrogen 35 mg/dL (8-24); CO2, Blood 21 mmol/L (21-32); Calcium, Blood 8.8 mg/dL (8.5-10.1); Chloride, Blood 109 mmol/L (98-108); Creatinine, Blood 1.03 mg/dL (0.60-1.20); Glucose, Blood 157 mg/dL (70-99); Phosphorus, Blood 3.8 mg/dL (2.5-4.9); Potassium, Blood 4.3 mmol/L (3.5-5.5); Sodium, Blood 136 mmol/L (136-145)
--- NOTE | 2025-01-28 06:25 | NUR ---
CALLED DR BALL ABOUT ELEVATED WBC COUNT
[2025-01-28 07:21] VITALS: BP 147/64
[2025-01-28 11:37] VITALS: BP 117/80
[2025-01-28 17:19] VITALS: BP 132/93
--- NOTE | 2025-01-28 19:14 | NUR ---
SHIFT SUMMARY PT IS A/OX4. INDEPENDENT IN THE ROOM. NO ACUTE CHANGES THROUGHOUT THIS SHIFT. TELE DC'D THIS AFTERNOON, BEFORE RUNNING NORMAL SINUS RYTHYM WITH TRIGEM PVC, BBB IN THE 70'S. ON RA, SATS >92%. STARTED ON PO STEROIDS. AT BEDSIDE THIS AFTERNOON.
[2025-01-28 20:29] VITALS: BP 136/99
[2025-01-29 04:39] VITALS: BP 152/76
--- NOTE | 2025-01-29 05:58 | NUR ---
PT REFUSED MORNING LABS. PATIENT HAS BEEN RESTING OVERNIGHT WITH NO ACUTE EVENTS. HE DOES HAVE A SIGNIFICANT COUGH HOWEVER IT DOES NOT SEEM TO BE PRODUCTIVE. ALL BELONINGS AND CALL GAN WITHIN REACH.
[2025-01-29 08:00] VITALS: BP 143/39
[2025-01-29 11:51] VITALS: BP 147/76
[2025-01-29 17:15] VITALS: BP 133/47
[2025-01-29 19:16] VITALS: BP 117/57
--- NOTE | 2025-01-29 19:47 | NUR ---
SHIFT SUMMARY PT IS A/OX4. INDEPENDENT IN THE ROOM. NO ACUTE CHANGES THROUGHOUT THIS SHIFT. ON RA, SATS >92%. AT BEDSIDE THIS AFTERNOON. PLAN IS TO DISCUSS WITH CASE MANAGEMENT TOMORROW ABOUT ESTABLISHING CAREGIVERS FOR AFTER DISCHARGE.
[2025-01-30 04:14] VITALS: BP 137/67
--- NOTE | 2025-01-30 04:34 | NUR ---
SHIFT SUMMARY 79 YR M ADMITTED ON 01/26/25. DNR. NO ACUTE CHANGES THIS SHIFT. PT IS A&O X 4, PLEASANT AND COOPERATIVE. HE IS ABLE TO MAKE HIS NEEDS KNOWN. PT SLEPT THROUGHOUT THE NIGHT AND DID NOT REQUIRE ANY ASSISTANCE. WILL CONTINUE TO MONITOR. BED IN LOW POSITION AND CALL LIGHT IN REACH.
[2025-01-30 05:14] LABS: BASOPHILS ABSOLUTE AUTO 0.00 K/mm3 (0.00-0.23); BASOPHILS PERCENT AUTO 0 % (0-2); EOSINOPHILS ABSOLUTE AUTO 0.00 K/mm3 (0.00-0.68); EOSINOPHILS PERCENT AUTO 0 % (0-6); Hematocrit 42.2 % (37.0-53.0); Hemoglobin 14.2 g/dL (13.5-17.5); IMMATURE GRAN ABSOLUTE AUTO 0.08 K/mm3 (0.00-0.10); IMMATURE GRAN PERCENT AUTO 1 % (0-1); LYMPHOCYTES ABSOLUTE AUTO 0.55 K/mm3 (0.84-5.20); LYMPHOCYTES PERCENT AUTO 6 % (21-46); MONOCYTES ABSOLUTE AUTO 0.37 K/mm3 (0.16-1.47); MONOCYTES PERCENT AUTO 4 % (4-13); Mean Corpuscular HGB Conc 33.6 g/dL (31.5-36.5); Mean Corpuscular Volume 90 fL (80-100); NEUTROPHILS ABSOLUTE AUTO 9.02 K/mm3 (1.96-9.15); NEUTROPHILS PERCENT AUTO 90 % (41-73); NRBC ABSOLUTE 0.00 K/mm3 (0.00-0.02); NRBC Auto 0.0 /100 WBC (0.0-0.2); Platelet Count 199 K/mm3 (150-400); RDW Coefficient Variation 14.7 % (11.7-14.2); RDW Standard Deviation 48.8 fL (35.1-46.3)
[2025-01-30 05:48] LABS: Anion Gap 10.0 mmol/L (3-11); Blood Urea Nitrogen 27.0 mg/dL (8-24); CO2, Blood 24.0 mmol/L (21-32); Calcium, Blood 8.7 mg/dL (8.5-10.1); Chloride, Blood 107.0 mmol/L (98-108); Creatinine, Blood 0.85 mg/dL (0.60-1.20); Glucose, Blood 192.0 mg/dL (70-99); Potassium, Blood 4.9 mmol/L (3.5-5.5); Sodium, Blood 136.0 mmol/L (136-145)
[2025-01-30 07:45] VITALS: BP 135/63
--- NOTE | 2025-01-30 10:50 | NUR ---
DISCHARGE RECEIVED CALL FROM "SILVANA" FROM [facility] FOR CLARIFICATION OF STERIOD DOSING, CLARIFIED. PT AOX4, COOPERATIVE, ABLE TO MAKE NEEDS KNOWN. PT IS IND IN ROOM WITH FWW. LUNG SOUNDS ARE WHEEZY IN BASES. TOLERATING MEDICATION. INFORMED TO CALL "FIL[facility]" REGARDING HOME HEALTH. NO IV PRESENT, NO TELE. PT WAS WHEELED OUT VIA WC BY FAMILY.
== END 2025-01-30 10:50 | disposition home health service (06) | DRG 189 ==
LOC: ER 13:03 → MEDS 18:22
PROVIDERS: Family Medicine; Nurse Practitioner Acute Care; Student in an Organized Health Care Education/Training Program; ADMIT Student in an Organized Health Care Education/Training Program
DX: J96.21 Acute and chronic respiratory failure with hypoxia (principal); J44.1 Chronic obstructive pulmonary disease with (acute) exacerbation; I13.0 Hypertensive heart and chronic kidney disease with heart failure and stage 1 through stage 4 chronic kidney disease, or unspecified chronic kidney disease; I50.22 Chronic systolic (congestive) heart failure; N17.9 Acute kidney failure, unspecified; E78.5 Hyperlipidemia, unspecified; E11.22 Type 2 diabetes mellitus with diabetic chronic kidney disease; I25.10 Atherosclerotic heart disease of native coronary artery without angina pectoris; Z66 Do not resuscitate; E11.51 Type 2 diabetes mellitus with diabetic peripheral angiopathy without gangrene; D72.829 Elevated white blood cell count, unspecified; N18.31 Chronic kidney disease, stage 3a; Z79.82 Long term (current) use of aspirin; Z79.51 Long term (current) use of inhaled steroids; Z79.52 Long term (current) use of systemic steroids; Z79.84 Long term (current) use of oral hypoglycemic drugs; Z79.899 Other long term (current) drug therapy; Z85.46 Personal history of malignant neoplasm of prostate; Z90.49 Acquired absence of other specified parts of digestive tract; Z98.42 Cataract extraction status, left eye; Z98.41 Cataract extraction status, right eye; Z95.1 Presence of aortocoronary bypass graft; Z98.890 Other specified postprocedural states; Z89.422 Acquired absence of other left toe(s); Z87.891 Personal history of nicotine dependence
CPT/HCPCS: 36415; 71046; 80048; 80053; 80069; 82803; 82947; 83735; 83880; 85025; 85027; 87637; 93005; 93010; 94640; 94664; 94760; 97110; 97161; 97165; 99285-25; A9270; J0456; J1644; J2919; J7030; J7050; J7512

== ENCOUNTER 2025-01-31 04:51 | Day surgery (SDC) | payer OTHER ==
[2025-01-31] MEDS ORDERED: Lidocaine HCl 4% Cream 5 GM ONE (14:14)
== END 2025-01-31 23:01 | disposition home or self-care (01) ==
LOC: WOUND 04:51
DX: E11.621 Type 2 diabetes mellitus with foot ulcer (principal); L97.525 Non-pressure chronic ulcer of other part of left foot with muscle involvement without evidence of necrosis; L97.522 Non-pressure chronic ulcer of other part of left foot with fat layer exposed; E11.51 Type 2 diabetes mellitus with diabetic peripheral angiopathy without gangrene; E11.40 Type 2 diabetes mellitus with diabetic neuropathy, unspecified; I25.10 Atherosclerotic heart disease of native coronary artery without angina pectoris; I10 Essential (primary) hypertension; J44.9 Chronic obstructive pulmonary disease, unspecified; Z89.412 Acquired absence of left great toe; Z89.422 Acquired absence of other left toe(s)
CPT/HCPCS: A9270; G0463

== ENCOUNTER 2025-02-07 06:55 | Day surgery (SDC) | payer OTHER ==
[~2025-02-07] VITALS: Ht 175.3 cm; Wt 67.0 kg
[2025-02-07] VITALS (8 sets, daily range): BP systolic 140–170; BP diastolic 71–90
[2025-02-07] MEDS ORDERED: Heparin Sodium 1000 Units/ML 10ML MDV ONE ×2 (07:15→07:27)
[2025-02-07] MEDS ORDERED: NS 1,000 ML IV ONE ×2 (07:15→08:06)
[2025-02-07] MEDS ORDERED: NS 500 ML IV ONE ×2 (07:15→07:27)
[2025-02-07] MEDS ORDERED: Nitroglycerin 2 MG/20 ML BTL ONE (07:16)
[2025-02-07 07:54] LABS: BASOPHILS ABSOLUTE AUTO 0.02 K/mm3 (0.00-0.23); BASOPHILS PERCENT AUTO 0 % (0-2); EOSINOPHILS ABSOLUTE AUTO 0.08 K/mm3 (0.00-0.68); EOSINOPHILS PERCENT AUTO 1 % (0-6); Hematocrit 47.7 % (37.0-53.0); Hemoglobin 15.9 g/dL (13.5-17.5); IMMATURE GRAN ABSOLUTE AUTO 0.08 K/mm3 (0.00-0.10); IMMATURE GRAN PERCENT AUTO 1 % (0-1); LYMPHOCYTES ABSOLUTE AUTO 1.27 K/mm3 (0.84-5.20); LYMPHOCYTES PERCENT AUTO 9 % (21-46); MONOCYTES ABSOLUTE AUTO 0.96 K/mm3 (0.16-1.47); MONOCYTES PERCENT AUTO 7 % (4-13); Mean Corpuscular HGB Conc 33.3 g/dL (31.5-36.5); Mean Corpuscular Volume 90 fL (80-100); NEUTROPHILS ABSOLUTE AUTO 11.10 K/mm3 (1.96-9.15); NEUTROPHILS PERCENT AUTO 82 % (41-73); NRBC ABSOLUTE 0.00 K/mm3 (0.00-0.02); NRBC Auto 0.0 /100 WBC (0.0-0.2); Platelet Count 208 K/mm3 (150-400); RDW Coefficient Variation 15.4 % (11.7-14.2); RDW Standard Deviation 50.4 fL (35.1-46.3)
[2025-02-07] MEDS ORDERED: FentaNYL Citrate 50 MCG/ML 2 ML Injection ONE (08:06)
[2025-02-07] MEDS ORDERED: Midazolam HCl 1MG / ML 2ML Vial ONE (08:06)
[2025-02-07 08:08] LABS: Anion Gap 9.0 mmol/L (3-11); Blood Urea Nitrogen 42.0 mg/dL (8-24); CO2, Blood 28.0 mmol/L (21-32); Calcium, Blood 9.2 mg/dL (8.5-10.1); Chloride, Blood 101.0 mmol/L (98-108); Creatinine, Blood 0.92 mg/dL (0.60-1.20); Glucose, Blood 194.0 mg/dL (70-99); Potassium, Blood 4.1 mmol/L (3.5-5.5); Sodium, Blood 134.0 mmol/L (136-145)
[2025-02-07] MEDS ORDERED: Protamine Sulfate 50 MG Amp ONE (10:44)
--- NOTE | 2025-02-07 11:05 | NUR ---
ASSUMED CARE OF PT POST PROCEDURE. PT DROWSY, BUT ANSWERING QUESTIONS APPROPRIATELY; DENIES PAIN POST PROCEDURE. MONITOR SR 60'S, B/P 170/90, SPO2 99 % RA. R FEMORAL SITE NO SWELLING/HEMATOMA, TEGADERM DRSG INTACT; ANGIO SEAL DEPLOYED, RLE: DOPPLER X 2, LLE: PT DOP, DP ABS (UNCHANGED FROM PRE).
--- NOTE | 2025-02-07 12:05 | NUR ---
PT HOB ELEVATED TO 30 DEGREES, SITE UNCHANGED.
--- NOTE | 2025-02-07 13:20 | NUR ---
PT DRESSED SELF WITHOUT ASSISTANCE, SITE UNCHAGNED; IV REMOVED-CANNULA INTACT.
--- NOTE | 2025-02-07 13:29 | NUR ---
PT AND SPOUSE RECEIVED DISCHARGE INSTRUCTIONS, MED LIST AND AFTER CARE INSTRUCTIONS; VERBALIZED GOOD UNDERSTANDING. PT LEFT FACILITY VIA W/C, CONDITION STABLE.
== END 2025-02-07 13:29 | disposition home or self-care (01) ==
LOC: MHTC 06:55
PROVIDERS: Student in an Organized Health Care Education/Training Program
DX: E11.51 Type 2 diabetes mellitus with diabetic peripheral angiopathy without gangrene (principal); L97.529 Non-pressure chronic ulcer of other part of left foot with unspecified severity; I10 Essential (primary) hypertension; I25.10 Atherosclerotic heart disease of native coronary artery without angina pectoris; I25.2 Old myocardial infarction; H40.1131 Primary open-angle glaucoma, bilateral, mild stage; J43.9 Emphysema, unspecified; Z95.1 Presence of aortocoronary bypass graft; Z87.891 Personal history of nicotine dependence; Z88.2 Allergy status to sulfonamides; Z88.6 Allergy status to analgesic agent; Z88.8 Allergy status to other drugs, medicaments and biological substances; Z91.040 Latex allergy status; Z79.82 Long term (current) use of aspirin; Z79.899 Other long term (current) drug therapy; Z89.422 Acquired absence of other left toe(s); Z90.49 Acquired absence of other specified parts of digestive tract
CPT/HCPCS: 37226; 37230; 37252; 75625; 75716; 75774; 76937; 80048; 85025; 85347; 99152; 99153; A9270; C1725; C1753; C1760; C1769; C1874; C1887; C1894; J1644; J2250; J2720; J3010; J7030; J7040; J7050; Q9967

== ENCOUNTER 2025-02-14 02:37 | Day surgery (SDC) | payer OTHER ==
[2025-02-14] MEDS ORDERED: Lidocaine HCl 4% Cream 5 GM ONE (13:04)
== END 2025-02-14 23:00 | disposition home or self-care (01) ==
LOC: WOUND 02:37
DX: E11.621 Type 2 diabetes mellitus with foot ulcer (principal); L97.523 Non-pressure chronic ulcer of other part of left foot with necrosis of muscle; E11.51 Type 2 diabetes mellitus with diabetic peripheral angiopathy without gangrene; E11.40 Type 2 diabetes mellitus with diabetic neuropathy, unspecified; I10 Essential (primary) hypertension; I25.10 Atherosclerotic heart disease of native coronary artery without angina pectoris; Z89.422 Acquired absence of other left toe(s)
CPT/HCPCS: A9270; G0463

== ENCOUNTER 2025-02-21 02:25 | Day surgery (SDC) | payer OTHER ==
[2025-02-21] MEDS ORDERED: Lidocaine HCl 4% Cream 5 GM ONE (15:31)
== END 2025-02-21 22:00 | disposition home or self-care (01) ==
LOC: WOUND 02:25
DX: E11.621 Type 2 diabetes mellitus with foot ulcer (principal); L97.525 Non-pressure chronic ulcer of other part of left foot with muscle involvement without evidence of necrosis; L97.522 Non-pressure chronic ulcer of other part of left foot with fat layer exposed; L97.529 Non-pressure chronic ulcer of other part of left foot with unspecified severity; J44.9 Chronic obstructive pulmonary disease, unspecified; I25.10 Atherosclerotic heart disease of native coronary artery without angina pectoris; I10 Essential (primary) hypertension; E11.51 Type 2 diabetes mellitus with diabetic peripheral angiopathy without gangrene; E11.40 Type 2 diabetes mellitus with diabetic neuropathy, unspecified; Z89.422 Acquired absence of other left toe(s)
CPT/HCPCS: A9270; G0463

== ENCOUNTER 2025-02-27 10:34 | Day surgery (SDC) | payer OTHER ==
[~2025-02-27] VITALS: Ht 170.2 cm; Wt 69.4 kg
[2025-02-27] VITALS (7 sets, daily range): BP systolic 100–135; BP diastolic 41–79
--- NOTE | 2025-02-27 11:21 | NUR ---
History, Chart, Medications and Allergies reviewed before start of procedure. Patient confirms NPO status and agrees with scheduled surgery. Pre-Op teaching done. Pt verbalizes understanding. Lungs clear T/O to Auscultation EXCEPT FOR RLL WITH EXP WHEEZES. PT DID NOT SHOWER WIHT SURGICAL SCRUB BRUSHES PROVIDED TO PT PER PT .
[2025-02-27] MEDS ORDERED: CeFAZolin Sodium 2,000 MG in NS 100 ML IV SCH (11:30)
[2025-02-27] MEDS ORDERED: CeFAZolin Sodium 2,000 MG VIAL ONE (11:38)
[2025-02-27] MEDS ORDERED: Lidocaine HCL 1% 10 ML MDV ONE ×2 (11:44→12:07)
[2025-02-27] MEDS ORDERED: Bupivacaine 0.5% Inj 10 ML Vial ONE (11:44)
[2025-02-27] MEDS ORDERED: Ondansetron HCl 2 MG / ML 2ML Vial IV PRN ×2 (11:50→12:10)
[2025-02-27] MEDS ORDERED: FentaNYL Citrate 50 MCG/ML 2 ML Injection IV PRN ×6 (11:50→12:10)
[2025-02-27] MEDS ORDERED: HYDROmorphone HCl/Pf 1MG SYR IV PRN ×2 (11:50→12:05)
[2025-02-27] MEDS ORDERED: Labetalol HCL 5 MG/ML 4ML Injection (Single Dose) IV PRN (11:50)
[2025-02-27] MEDS ORDERED: Dexamethasone Sod Phos 10 MG/ML 1ML VIAL ONE (11:55)
[2025-02-27] MEDS ORDERED: Phenylephrine HCl 100 MCG/ML-NS 10MLSYR (1MG/10ML) ONE (11:55)
[2025-02-27] MEDS ORDERED: Ondansetron HCl 2 MG / ML 2ML Vial ONE (11:55)
[2025-02-27] MEDS ORDERED: HYDROmorphone HCl/Pf 1MG SYR ONE (12:18)
[2025-02-27] MEDS ORDERED: HYDROcodone 5-APAP 325 TAB PO PRN (12:55)
--- NOTE | 2025-02-27 13:50 | NUR ---
Discharge instructions reviewed with patient. Patient verbalizes understanding. Copy given to patient to take home. Patient States Post-Procedure ride home has been arranged. Discharged via wheelchair to private car for ride home. PT REQUESTED TO GO HOME IN PT GOWN.
== END 2025-02-27 13:51 | disposition home or self-care (01) ==
LOC: ORSCMMR 10:34 → ORSCSDS 12:00 → ORD 12:00 → ORSCMMR 12:00
DX: I96 Gangrene, not elsewhere classified (principal); I70.222 Atherosclerosis of native arteries of extremities with rest pain, left leg; E11.42 Type 2 diabetes mellitus with diabetic polyneuropathy; Z79.84 Long term (current) use of oral hypoglycemic drugs; Z79.899 Other long term (current) drug therapy; Z79.82 Long term (current) use of aspirin; J44.9 Chronic obstructive pulmonary disease, unspecified; Z87.891 Personal history of nicotine dependence; I10 Essential (primary) hypertension; I25.10 Atherosclerotic heart disease of native coronary artery without angina pectoris; Z79.02 Long term (current) use of antithrombotics/antiplatelets
CPT/HCPCS: 82947; 88307; 88311; A6253; J0690; J1100; J1171; J2003; J2371; J2405; J2704; J7120